=== PATIENT | male | born 1945 | race Caucasian/White ===

== ENCOUNTER 2020-12-19 13:25 | Outpatient (CLI) | payer MEDICARE, SELFPAY ==
--- NOTE | ~2020-12-19 | XR_ITS ---
EXAMINATION: XR chest 2V EXAM DATE: 12/19/2020 14:04 INDICATION: U07.1 - COVID-19. Shortness of breath. TECHNIQUE: Frontal and lateral projections of the chest obtained and reviewed. Comparison is made to prior examination from 01/22/2007. FINDINGS: Extensive abnormal reticulation throughout the lungs, new compared to 2006. Uncertain how m uch of this is chronic interstitial lung disease versus patient's known diagnosis of COVID pneumonia. There is a right-sided Chemo-Port which is abnormally positioned, catheter extending partly of the ri [facility] internal jugular vein, but then tipped extending back down to the subclavian confluence and point ing inferiorly. No sizable pleural effusion. No pneumothorax. There are bony degenerative changes. Incidental note made of a catheter overlying the nona hepatis with a proximal loop, could be biliary . IMPRESSION: 1. Extensive abnormal reticulation, consistent with subacute COVID pneumonia. 2. Possible underlying chronic interstitial lung disease. 3. Right-sided portacatheter with abnormal catheter position. Reviewed, dictated and finalized at location A.
[2020-12-19 14:49] LABS: Eosinophils Absolute Auto 0.1 K/mm3 (0-0.3); Eosinophils Percent Auto 3.2 % (0-4.4); Hematocrit 38.5 % (42.0-52.0); Hemoglobin 12.4 g/dL (14.0-18.0); Immature Granulocyte Absolute 0.02 K/mm3 (0.00-0.031); Immature Granulocyte Percent A 0.5 % (0-0.5); Lymphocytes Absolute Auto 0.61 K/mm3 (0.9-3.2); Lymphocytes Percent Auto 14.8 % (18.3-44.2); Mean Corpuscular HGB Conc 32.2 g/dl (32-36); Mean Corpuscular Hemoglobin 28.6 pg (26-34); Mean Corpuscular Volume 88.7 fl (80-100); Monocytes Absolute Auto 0.3 K/mm3 (0.1-0.6); Monocytes Percent Auto 6.6 % (2.6-8.5); Neutrophils Percent Auto 73.9 % (45.5-73.1); Platelet Count Result 115 k/mm3 (150-375); Red Blood Count 4.34 M/mm3 (4.6-6.20); Red Cell Distribution Width 20.8 % (11.5-14.5); White Blood Count 4.1 K/mm3 (4.5-10.0)
[2020-12-19 15:00] LABS: Anion Gap 2 mmol/L (8-16); Blood Urea Nitrogen 32 mg/dL (9-20); Calcium 9.2 mg/dL (8.4-10.2); Carbon Dioxide 31 mmol/L (22-30); Chloride 109 mmol/L (98-107); Estimated Glomerular Filt Rate 54; Glucose 124 mg/dL (75-110); Potassium 5.1 mmol/L (3.4-5.0); Sodium 142 mmol/L (137-145)
[2020-12-19 15:09] LABS: NT Pro B Type Natriuretic Pept 1600 pg/mL (5-100)
== END 2020-12-19 13:26 | disposition home or self-care (01) ==
LOC: ANHIMG 13:29
PROVIDERS: PCP Family Medicine; Visit Provider Nurse Practitioner Family
DX: R31.9 Hematuria, unspecified (principal); R06.00 Dyspnea, unspecified; R79.89 Other specified abnormal findings of blood chemistry; J12.82 Pneumonia due to coronavirus disease 2019; U07.1 COVID-19
CPT/HCPCS: 36415; 71046; 80048; 83880; 85025

== ENCOUNTER 2021-11-08 03:34 | Inpatient (IN) | payer MEDICARE, SELFPAY ==
[2021-11-08] VITALS (30 sets, daily range): BP systolic 66–110; BP diastolic 52–82; PULSE 99–125; RESP 16–37; TEMP 36.2–36.9; O2SAT 94–100; BMI 20.3
--- NOTE | 2021-11-08 | ECHO_ITS ---
Patient Info Name: Jarvis Nuno Age: 76 years : 1945 Gender: Male Ht: 66 in Wt: 134 lbs BSA: 1.68 m2 HR: 105 bpm BP: 103 / 69 mmHg Heart Rhythm: Sinus Rhythm, Tachycardia Technical Quality: Fair Exam Date: 11/08/2021 1:54 PM Exam Location: [facility] Pulmonary Exam Room: ICU7 Patient Status: Inpatient Admit Date: 11/08/2021 Staff Ordering Physician: Ryan Reich MD Acid Purifier: María Rojas RDCS Attending Provider: Ju Adams MD Exam Type: CA echo doppler color flow Study Info Indications - CHF Complete two-dimensional, color flow and Doppler transthoracic echocardiogram is performed. Summary 1. Complete two-dimensional, color flow and Doppler transthoracic echocardiogram is performed. 2. Normal left ventricular size with mild concentric hypertrophy, hyperdynamic systolic function with no segmental wall motion abnormalities, EF > 70%. Grade 1 diastolic dysfunction. 3. Moderate pulmonary hypertension, estimated pulmonary arterial systolic pressure is 51 mmHg. 4. There is trace tricuspid valve regurgitation. 5. sinus tachycardia. Left Ventricle Left ventricular chamber dimension is normal. Left ventricular systolic function is hyperdynamic, estimated at >70%. There is mildly increased left ventricular wall thickness. Left ventricular septal wall motion is normal. The left ventricular diastolic function is normal. Right Ventricle Right ventricular chamber dimension is normal. Right ventricular systolic function is normal. Left Atria Left atrial chamber dimension is normal. Right Atria Right atrial chamber dimension is normal. Aortic Valve The aortic valve is trileaflet. There is mild aortic valve sclerosis. There is no aortic valve stenosis. There is no aortic valve regurgitation. Pulmonic Valve The pulmonic valve is normal. There is no pulmonic valve stenosis. There is no pulmonic regurgitation. Mitral Valve The mitral valve has normal leaflets. There is no mitral valve stenosis. There is no mitral valve regurgitation. Tricuspid Valve The tricuspid valve leaflets are normal. There is no significant tricuspid valve stenosis. There is trace tricuspid valve regurgitation. Moderate pulmonary hypertension, estimated pulmonary arterial systolic pressure is 51 mmHg. Pericardium/Pleural The pericardium appears normal. There is no pericardial effusion. Inferior Vena Cava Normal inferior vena cava with >50% collapse upon inspiration consistent with Empty right atrial pressure, 10 mmHg. Aorta The aortic root size at the sinus of Valsalva is normal. The prox ascending aorta size is normal. Left Ventricular Outflow Tract Name Value Normal LVOT 2D LVOT Diameter 2.0 cm LVOT Doppler LVOT Peak Velocity 107 cm/s LVOT Peak Gradient 5 mmHg LVOT Mean Gradient 2 mmHg LVOT VTI 14 cm LVOT VTI/AV VTI Ratio 1.0 LVOT Stroke Volume 45 ml LVOT CO
--- NOTE | ~2021-11-08 | CT_ITS ---
EXAMINATION: CT abdomen pelvis wo con DATE: 11/08/2021 09:00 INDICATION: Acute renal insufficiency. Kidney stent. TECHNIQUE: Computed tomography (CT) of the abdomen and pelvis was performed without intravenous contr ast. Automated exposure control and iterative reconstruction technique were employed. The dose-length product was 567.44 mGy-cm. COMPARISON: CT dated 04/22/2019 and MRI dated 05/14/2019 FINDINGS: Severe emphysema at the lung bases with dependent predominant diffuse smooth septal line thickening s uggesting mild pulmonary edema. Heart size is normal. No pericardial or pleural effusion. Multiple hy podense masses scattered throughout the liver, the largest measuring up to 9 cm in the right hepatic lobe. There are a few gallstones within the normal-appearing gallbladder. Bilateral adrenal glands, p ancreas and spleen are normal. Right internal ureteral stent with loops formed in the bladder and the right extrarenal pelvis. Mild right hydronephrosis. Moderate to severe right renal atrophy. 1.5 cm h yperdense proteinaceous/hemorrhagic cyst at the lower pole of the left kidney. There is fluid through out the colon consistent with diarrhea. There are few diverticula at the sigmoid colon. There is sugg estion of wall thickening at the proximal sigmoid colon with some surrounding inflammatory stranding which does not appear specifically associated with a diverticulum. Mild wall thickening with smooth c ontour and small mural calcification at the right trigonal region of the bladder which could be relat ed to reported prior reported neoplasm of the bladder trigone or posttreatment effects. Prostatomegal y. No free intraperitoneal gas or fluid. No pathologically enlarged abdominal or pelvic lymphadenopat hy. Lumbar dextroscoliosis with severe spondylosis. No suspicious lytic or blastic bone lesions. IMPRESSION: 1. Numerous hepatic masses consistent with metastatic disease. Consider ultrasound-guided biopsy. 2. Wall thickening and pericolonic inflammatory stranding at the proximal sigmoid colon. Although the re are multiple diverticula disc does not appear definitively associated with a specific diverticulum and differential includes diverticulitis, focal colitis or colon cancer. Consider further evaluation with colonoscopy. 3. Mild wall thickening with smooth contour at the right trigonal region of the bladder likely relate d to reported prior neoplasm at this location or scarring related to treatment thereof. 4. Moderate to severe right renal atrophy with mild hydronephrosis and right internal ureteral stent in expected position. 5. Cholelithiasis. Reviewed, dictated and finalized at location A. IMPRESSION: 1. Numerous hepatic masses consistent with metastatic disease. Consider ultraso und-guided biopsy. 2. Wall thickening and pericolonic inflammatory stranding at the proximal sigmo id colon. Although there are multiple diverticula disc does not appear definiti vely associated with a specific diverticulum and differential includes divertic ulitis, focal colitis or colon cancer. Consider further evaluation with colonos copy. 3. Mild wall thickening with smooth contour at the right trigonal region of the bladder likely related to reported prior neoplasm at this location or scarring related to treatment thereof. 4. Moderate to severe right renal atrophy with mild hydronephrosis and right in ternal ureteral stent in expected position. 5. Cholelithiasis.
--- NOTE | ~2021-11-08 | NM_ITS ---
EXAMINATION: NM pulmonary perfusion DATE: 11/08/2021 09:06 INDICATION: Hypoxia. Tachycardia. TECHNIQUE: 5.5 mCi Tc-99m MAA was administered intravenously for perfusion images. Scintigraphic marisa ges of the chest were obtained. COMPARISON: Chest CT 11/08/2021, chest single view 11/08/2021 FINDINGS: Perfusion images show many matched defects including a large defect in superior segment right lower l obe, small and moderate sized defects in the lower lobes and right upper lobe, and a small defect in left upper lobe. IMPRESSION: 1. Nondiagnostic (intermediate probability for pulmonary embolism). Reviewed, dictated and finalized at location A.
--- NOTE | ~2021-11-08 | XR_ITS ---
EXAMINATION: XR chest 1V portable DATE: 11/08/2021 05:04 INDICATION: Shortness of breath TECHNIQUE: frontal view of the chest was obtained. COMPARISON: Chest radiograph dated 12/19/2020 FINDINGS: Diffuse increased interstitial pattern consistent with mild pulmonary edema superimposed over emphyse ma. No pleural effusion or pneumothorax. The cardiomediastinal silhouette is normal. Right internal j ugular central venous port catheter which is looped in the right internal jugular vein with distal ti p at the right brachiocephalic vein. Bilateral rotator cuff arthropathy with severe osteoarthritis at the bilateral glenohumeral and sternoclavicular joints. A few old bilateral rib fractures. IMPRESSION: 1. Pulmonary edema superimposed over emphysema. Reviewed, dictated and finalized at location A.
--- NOTE | ~2021-11-08 | XR_ITS ---
XR chest 1V portable 11/09/2021 08:17 Indication: Respiratory failure Procedure: AP portable chest Comparison: Comparison to multiple prior studies sequentially, with oldest reviewed study dated 01/22. Findings: Stable cardiomediastinal silhouette. Port catheter tip in the cranial aspect of the SVC. Di ffuse hazy bilateral airspace disease which may represent edema or pneumonia. No pleural effusion. No pneumothorax. Impression: 1: Diffuse bilateral airspace disease which may represent edema or pneumonia. Reviewed, dictated and finalized at location B. Impression: 1: Diffuse bilateral airspace disease which may represent edema or pneumonia.
--- NOTE | ~2021-11-08 | US_ITS ---
EXAMINATION: US venous doppler [facility] DATE: 11/08/2021 08:22 INDICATION: Hypoxia TECHNIQUE: Grayscale ultrasound images without and with compression and Doppler ultrasound images of the bilateral lower extremity veins were obtained. COMPARISON: None. FINDINGS: The visualized portions of right common femoral vein, profunda (deep) femoral vein, femoral vein, pop liteal vein, posterior tibial veins, peroneal veins, gastrocnemius vein and greater saphenous vein ou tflow are patent. The visualized portions of left common femoral vein, profunda femoral vein, femoral vein, popliteal v ein, posterior tibial veins, peroneal veins, gastrocnemius vein and greater saphenous vein outflow ar e patent. IMPRESSION: 1. No deep venous thrombosis in either lower limb. Reviewed, dictated and finalized at location A.
--- NOTE | ~2021-11-08 | CT_ITS ---
EXAMINATION: CT chest high resolution wo co DATE: 11/08/2021 06:16 INDICATION: LEUKOCYTOSIS, HYPOXIA, HX OF COPD, MALIGNANCY TECHNIQUE: Computed tomography (CT) of the chest was performed without intravenous contrast. Addition al 3D reconstructions utilizing coronal maximum intensity projection (MIP) were performed. Automated exposure control and iterative reconstruction technique were employed. The dose-length product was 17 4.34 mGy-cm. COMPARISON: 11/08/2021 FINDINGS: Severe emphysema. Smooth septal line thickening scattered throughout both lungs most prominent in the lower lung zones suggesting superimposed mild pulmonary edema. A couple spiculated 6 7 7 mm nodules at the left apex. Heart size is normal. Atherosclerotic coronary artery calcification. No pericardial or pleural effusion. Thoracic aorta is normal in caliber. No pathologically enlarged thoracic lympha denopathy. Right internal jugular central venous port catheter which loops 3 cm cephalad in the right internal jugular vein before extending caudally with distal tip at the level of the confluence with the right brachiocephalic vein. Partially visualized upper pole of the right kidney is severely atrop hic. Heterogeneous attenuation throughout the liver with suggestion of multiple hepatic masses suspic ious for metastatic disease. One of a larger more well-defined masses measures 2.2 cm. There is sugge stion of larger-9 cm mass in the right hepatic lobe however assessment is limited in the absence of i ntravenous contrast. Moderate upper thoracic kyphosis with internally fused chronic compression fract ures at T3-T5. Old healed sternal fracture and several old healed bilateral rib fractures. IMPRESSION: 1. Multiple hepatic masses suspicious for metastatic disease. 2. Severe emphysema with superimposed mild pulmonary edema. 3. Couple indeterminate 6 mm spiculated nodules at the left apex for which 12 month follow-up low-dos e noncontrast chest CT would be recommended. 4. Severe atrophy of the visualized upper pole of the right kidney. Reviewed, dictated and finalized at location A. IMPRESSION: 1. Multiple hepatic masses suspicious for metastatic disease. 2. Severe emphysema with superimposed mild pulmonary edema. 3. Couple indeterminate 6 mm spiculated nodules at the left apex for which 12 m onth follow-up low-dose noncontrast chest CT would be recommended. 4. Severe atrophy of the visualized upper pole of the right kidney.
--- NOTE | 2021-11-08 03:42 | ECG_ITS ---
Measurements Intervals [place] Rate: 112 P: 37 WV: 155 QRS: 268 QRSD: 129 T: 9 QT: 355 QTc: 485 Interpretive Statements SINUS TACHYCARDIA MARKED RIGHT AXIS DEVIATION [QRS AXIS > 100] RIGHT BUNDLE BRANCH BLOCK [120+ ms QRS DURATION, UPRIGHT V1, 40+ ms S IN I/aVL/V4/V5/V6] PREVIOUS INFEROLATERAL INFARCTION V3/V4, OR R < 0.2 mV IN V4] COMPARED TO ECG 04/23/2019 11:41:47 EVIDENCE OF INFEROLATERAL INFARCTION SEEN RIGHT BUNDLE-BRANCH BLOCK NOW PRESENT Electronically Signed On 11-08-2021 7:32:29 CDT by Addison Guevara M.D.
[2021-11-08] MEDS: SODIUM CHLORIDE 0.9% IV 500 ML 999 ML IV CONT ×2 (03:50→04:34)
[2021-11-08 03:55] LABS: Hematocrit 35.6 % (42.0-52.0); Hemoglobin 10.3 g/dL (14.0-18.0); Mean Corpuscular HGB Conc 28.9 g/dl (32-36); Mean Corpuscular Hemoglobin 25.4 pg (26-34); Mean Corpuscular Volume 87.7 fl (80-100); Mean Platelet Volume 8.9 fl (7.4-10.4); Platelet Count Result 315 k/mm3 (150-375); Red Blood Count 4.06 M/mm3 (4.6-6.20)
--- NOTE | 2021-11-08 03:56 | ED.SOB ---
HPI - SOB/Dyspnea General Chief Complaint: Shortness of Breath/Dyspnea Stated Complaint: SOB Time Seen by Provider: 11/08/21 03:39 Source: patient and family History of Present Illness HPI Narrative: Patient with a history of COPD, metastatic bladder cancer recently discontinued chemotherapy presents with shortness of breath. Patient has had increased shortness of breath and weakness throughout this evening was having a hard time moving so family called EMS and brought him to the ER for evaluation. Ports sensation of not being able to get enough air denies any focal areas of pain. Family attempting an oxygen level at home with her pulse oximeter however was not reading. Patient is normally on 4 to 5 L of oxygen nasal cannula at baseline. Denies any recent fevers, cough, congestion. Related Data Home Medications Medication Instructions Recorded Confirmed tramadol 100 mg tablet 100 mg PO Q6H PRN 12/13/20 12/24/20 Allergies Allergy/AdvReac Type Severity Reaction Status Date / Time No Known Allergies Allergy Verified 12/21/20 14:37 Review of Systems Review of Systems: CONSTITUTIONAL: Denies fever, chills, or sweats. EYES: Denies visual changes, redness, or discharge. ENT: Denies rhinorrhea, congestion, sore throat, or otalgia. CARDIOVASCULAR: Denies chest pain, palpitations, or edema. RESPIRATORY: Reports shortness of breath GASTROINTESTINAL: Denies abdominal pain, nausea, vomiting, or diarrhea. GENITOURINARY: Denies dysuria or hematuria. SKIN: Denies rash or itching. MUSCULOSKELETAL: Denies back pain, joint pain, or myalgia. NEUROLOGIC: Denies headache, numbness, dizziness, or weakness. PSYCHIATRIC: Denies anxiety or depression. 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 EYES: PERRLA and EOMI. ENT: Nares clear, no rhinorrhea or epistaxis. Mucous membranes moist. NECK: Supple. No masses. No JVD CHEST: Clear to auscultation. No wheezes rales or rhonchi moderate increased work of breathing HEART: Tachycardia no murmur heard. Normal peripheral pulses. ABDOMEN: Soft, nontender, nondistended, normal active bowel sounds. EXTREMITIES: Normal range of motion. No edema. SKIN: Warm, dry, no rash. NEURO: No focal deficits. Alert and oriented x3. PSYCH: Normal mood and affect. Course Reevaluation(s) Reevaluation #1: Patient is critically ill remains tachycardic and hypotensive. Continue to titrate his nonrebreather. Patient is a history of metastatic cancer PEs exam is with clear lungs primary concern at this time is for a massive PE due to patient's elevated creatinine and GFR he is unable to obtain contrast VQ scan is unlikely to be beneficial due to patient's known interstitial lung disease will confirm with nuc med. Family is comfortable pursuing contrasted study knowing the risks. We will continue coordination with radiology Date: 11/08/21 Time: 05:01 Reevaluation #2: Long discussion held with family with regards to goals of care symptom's hypoxia leukocytos
[2021-11-08 04:06] LABS: INR 1.1; Prothrombin Time 13.8 Seconds (11.1-14.7)
[2021-11-08 04:07] LABS: Alveolar/Arterial O2 Gradient 414.3 mmHg; Base Excess ABG -9.9 mEq/l (+/-2.0); Fractional Inspired Oxygen 100 %; HCO3 ABG 15.4 mEq/l (22.0-26.0); Oxygen Content ABG 14.2 %vol (16.0-22.0); Oxygen Saturation ABG 99.6 % (95.0-100.0); Oxyhemoglobin 98.4 % THb (90.0-100.0); PCO2 ABG 31.7 mmHg (35.0-45.0); PO2 FiO2 Ratio Arterial Blood 2.67 %; Total Hemoglobin 9.8 g/dL (12.0-18.0); pH ABG 7.304 (7.350-7.450)
[2021-11-08 04:09] LABS: Device NON-REBREATHER MASK; Modified Allen's Test Pass; Site Drawn RIGHT RADIAL
[2021-11-08 04:10] LABS: White Blood Count 52.1 K/mm3 (4.5-10.0)
[2021-11-08 04:12] LABS: Band Neutrophils Percent 15 % (0-6); Monocytes Absolute Manual 3.12 K/mm3 (0.1-0.90); Monocytes Percent Manual 6 % (3-9); Neutrophils Absolute Manual 48.97 K/mm3 (1.3-6.7); Neutrophils Percent Manual 79 % (46-73); Platelet Estimate Decreased (Adequate); Total Cells Counted 100
[2021-11-08 04:13] LABS: Anisocytosis 1+ (NORMAL); Large Platelets Present; Ovalocytes 1+ (NORMAL); Poikilocytosis 1+ (NORMAL); Stomatocytes 1+ (NORMAL)
[2021-11-08 04:26] LABS: Alanine Aminotransferase 78 U/L (4-50); Albumin Level 3.9 g/dL (3.5-5.1); Alkaline Phosphatase 473 U/L (38-126); Anion Gap 21 mmol/L (8-16); Aspartate Amino Transferase 183 U/L (17-59); Blood Urea Nitrogen 53 mg/dL (9-20); Calcium 8.9 mg/dL (8.4-10.2); Carbon Dioxide 17 mmol/L (22-30); Chloride 104 mmol/L (98-107); Estimated CRCL calculation 22 ml/min; Estimated Glomerular Filt Rate 29; Glucose 109 mg/dL (65-110); Magnesium 2.3 mg/dL (1.6-2.3); NT Pro B Type Natriuretic Pept 4070 pg/mL (5-100); Potassium 5.1 mmol/L (3.4-5.0); Sodium 142 mmol/L (137-145); Troponin I 0.042 ng/mL (0.000-0.034)
[2021-11-08 04:39] LABS: Lactic Acid Reflex 8.3 mmol/L (0.7-2.1)
[2021-11-08] MEDS: SODIUM CHLORIDE 0.9% IV 1,000 ML 999 ML IV CONT (05:53)
[2021-11-08 06:39] LABS: Hematocrit 30.5 % (42.0-52.0); Hemoglobin 9.2 g/dL (14.0-18.0); Mean Corpuscular HGB Conc 30.2 g/dl (32-36); Mean Corpuscular Hemoglobin 25.6 pg (26-34); Mean Platelet Volume 9.2 fl (7.4-10.4); Platelet Count Result 285 k/mm3 (150-375); Red Blood Count 3.59 M/mm3 (4.6-6.20); Red Cell Distribution Width 19.9 % (11.5-14.5); White Blood Count 45.9 K/mm3 (4.5-10.0)
[2021-11-08 06:44] LABS: Add Urine Microscopic? YES; Appearance Urine Cloudy (Clear); Bilirubin Urine Negative (Negative); Blood Urine 3+ (Negative); Color Urine Amber (Yellow); Glucose Urine UA 1+ mg/dL (Negative); Ketones Urine Negative (Negative); Leukocyte Esterase Ur 1+ LEU/UL (Negative); Nitrate Urine Negative (Negative); Protein Urine 2+ mg/dL (Negative); RBC Urine >75 /hpf (0-2); Specific Grav Ur 1.019 (1.001-1.035); Squamous Epithelial Cell Urine Rare /hpf (Few); Urobilinogen Urine Negative mg/dL (<2.0); WBC Urine 31-50 /hpf
[2021-11-08 06:49] LABS: INR 1.1; Prothrombin Time 14.1 Seconds (11.1-14.7)
[2021-11-08 06:50] LABS: Partial Thromboplastin Time 33.2 SECONDS (22.3-36.8)
[2021-11-08] MEDS: PIPERACILLIN/TAZOBACTAM SOD 4.5 GM in SODIUM CHLORIDE 0.9% IV 100 ML 200 ML IVPB (06:50)
[2021-11-08] MEDS: HEPARIN SOD/D5W 100 UNITS/ML 25,000 UNITS/250 ML BAG 11 UNITS IV CONT (06:56)
[2021-11-08] MEDS: HEPARIN SODIUM 5,000 UNITS/ML VIAL 5000 UNITS IV PUSH (06:56)
[2021-11-08 07:26] LABS: Reflex Lactic Acid Yes or No Add Lactic
--- NOTE | 2021-11-08 07:31 | WPDCNINT ---
Assessment and Plan Assessment and plan (1) Acute and chronic respiratory failure: Code(s): J96.20 - Acute and chronic respiratory failure, unspecified whether with hypoxia or hypercapnia Status: Acute Assessment and Plan: Patient has severe COPD at baseline and along with a metastatic lung disease. He also has history of PEEP Is on 4-5 L at home oxygen Hypoxia appears to be worse CT which could be COPD exacerbation, a new PE and also has a pulmonary edema CT chest IMPRESSION: 1. Multiple hepatic masses suspicious for metastatic disease. 2. Severe emphysema with superimposed mild pulmonary edema. 3. Couple indeterminate 6 mm spiculated nodules at the left apex for which 12 month follow-up low-dose noncontrast chest CT would be recommended. 4. Severe atrophy of the visualized upper pole of the right kidney. COVID-19 PCR negative. Check influenza Heparin infusion for possible PE Will further IV fluids due to pulmonary edema IV Solu-Medrol Bronchodilators Empiric antibiotic (2) Sepsis: Code(s): A41.9 - Sepsis, unspecified organism Status: Acute Assessment and Plan: Patient meets criteria for sepsis. UA suggests UTI CT chest reviewed and does not chew any significant pneumonia Patient has received significant amount of fluids with IV fluid bolus and has developed volume overload Hold further IV fluids Monitor lactic acid level Blood and urine cultures sent Continue empiric vancomycin Zosyn Check C diff (3) Lactic acidosis: Code(s): E87.2 - Acidosis Status: Acute Assessment and Plan: Likely secondary to sepsis hypoxia and poor clearance from metastatic liver disease (4) VTE (venous thromboembolism): Code(s): I82.90 - Acute embolism and thrombosis of unspecified vein Status: Acute Assessment and Plan: Patient was diagnosed with PE and DVT in November 2020 and was on anticoagulation for few months. Per it was discontinued by physician and he did not had any complications of bleeding He may have developed a new PE as he has malignant cancer and is at high risk Continue heparin infusion that was started in ER Check lower extremity Dopplers The patient's poor renal function does not allow CT angiogram V/Q scan is ordered Check echocardiogram (5) COPD (chronic obstructive pulmonary disease): Qualifiers: COPD type: COPD with acute exacerbation Qualified Code(s): J44.1 - Chronic obstructive pulmonary disease with (acute) exacerbation Code(s): J44.9 - Chronic obstructive pulmonary disease, unspecified Status: Acute Assessment and Plan: Does not appear to be in any significant exacerbation from baseline. His oxygen requirement is at baseline No wheezing on exam but he has poor air entry throughout. Lip pursing Start Bronchodilators and Solu-Medrol (6) Congestive heart failure: Code(s): I50.9 - Heart failure, unspecified Status: Acute Assessment and Plan: Patient has cor pulmonale with right to left shunt Appears to have some volume moved after receiving IV fluid Hold further IV fluids at this time Will consider giving Lasix if blood pressure allows Check echocardiogram (7) Acute kidney injury superimposed on chronic kidney disease: Code(s): N17.9 - Acute kidney failure, unspecified; N18.9 - Chronic kidney disease, unspecified Status: Acute Assessment and Plan: Patient was given IV fluid bolus and patient appears to have developed some volume overload hence will hold further fluids at this time Check CK level Monitor urine output creatinine electrolytes Since patient already has a stent on the right side there is a possibility of obstruction and hydronephrosis-check CT scan of abdomen pelvis (8) Hyperkalemia: Code(s): E87.5 - Hyperkalemia Status: Acute Assessment and Plan: Repeat BMP now (9) Metabolic acidosis: Code(s): E87.2 - Acidosis Status: Acute
[2021-11-08 07:42] LABS: SARS-CoV-2 RNA PCR Negative
[2021-11-08 07:49] LABS: Anisocytosis 2+ (NORMAL); Band Neutrophils Percent 11 % (0-6); Neutrophils Percent Manual 89 % (46-73); Platelet Estimate Adequate (Adequate); Total Cells Counted 100
[2021-11-08 08:41] LABS: Lactic Acid 1.4 mmol/L (0.7-2.1)
[2021-11-08 08:43] LABS: Anion Gap 9 mmol/L (8-16); Blood Urea Nitrogen 55 mg/dL (9-20); Calcium 7.8 mg/dL (8.4-10.2); Carbon Dioxide 24 mmol/L (22-30); Chloride 105 mmol/L (98-107); Estimated CRCL calculation 22 ml/min; Estimated Glomerular Filt Rate 31; Glucose 179 mg/dL (65-110); Potassium 4.3 mmol/L (3.4-5.0); Sodium 138 mmol/L (137-145)
[2021-11-08 08:58] LABS: Creatine Kinase 95 U/L (55-170)
[2021-11-08 09:53] LABS: Influenza Control Positive
[2021-11-08] MEDS: PANTOPRAZOLE SODIUM IV 40 MG VIAL IV PUSH (10:01)
[2021-11-08] MEDS: methylPREDNISolone SOD SUCC 125 MG VIAL 60 MG IV PUSH (10:01)
[2021-11-08 10:06] LABS: Toxigenic C. Diff NEGATIVE (NEGATIVE)
[2021-11-08] MEDS: VANCOMYCIN ORAL 125 MG/2.5 ML SYRUP PO (10:08)
[2021-11-08 13:00] LABS: Lactic Acid Reflex 1.1 mmol/L (0.7-2.1)
[2021-11-08 13:04] LABS: Partial Thromboplastin Time 124.7 SECONDS (22.3-36.8)
[2021-11-08] MEDS: CENTRAL LINE FLUSH 10 ML IV PUSH ×2 (14:22→20:21)
--- NOTE | 2021-11-08 14:33 | ADMGEN ---
This patient, Jarvis Nuno, was admitted to Intensive Care Unit-7 at 0740. Patient/family oriented to hospital policies and general routines including ID bracelet, bed and alarms, visiting hours, pain management, procedures, bathroom and other care routines, personal items, smoking policy, room service/diet, and visiting hours. Information on how to activate the Rapid Response Team has been discussed. Patient/Family are encouraged to report perceived risks to care and to ask questions if they do not understand what they are told or what they should do.
--- NOTE | 2021-11-08 17:09 | PM.IMHP ---
H&P: HPI History of Present Illness Date/Time: 11/08/21 17:09 Chief Complaint: SOB and Tachycardiac Narrative: Pt seen in ICU by the bedside reports he fell over and she checked his pulse oxs which were not readable called 911. Pt has a significant medical history severe COPD, right to left shunt, chronic respiratory failure, alcohol and tobacco abuse, hypertension, urothelial cancer of bladder diagnosed in 2019, right kidney stone leading to hydronephrosis status post stent placement in 2019, emphysema. Workup showed that his urothelial carcinoma was metastatic with metastatic disease in liver. Pt was in hospital last october with COVID. Pt currently is with palliative radiation and immunotheraphy. Pt is considering hospice. Pt looks frail Bp is low and he is Sob stable on oxygen. Review of Systems Review of Systems: All systems reviewed & are unremarkable except as noted in HPI and below PMFSH Past Medical History Medical History Tobacco abuse Surgical History Surgical History Status post placement of arteriovenous graft Family History Family History Father Family history of chronic obstructive pulmonary disease Mother Family history of atrial fibrillation Social History Social History Smoking packs per day: 1 Smoking cigarettes per day: 20.0 Years smoked: 65 Smoking pack-years: 65.00 Smoking status: Former smoker Tobacco type: cigarettes Alcohol intake: never Substance use: never Substance use type: does not use Additional occupation/education comments: [employer] Gender identity (if verbalized by the patient): Male Spiritual care concerns: No Meds Home Medications and Allergies Home Medications Medication Instructions Recorded Confirmed Type tramadol 100 mg tablet 50 mg PO Q6H PRN 12/13/20 11/08/21 History albuterol sulfate 2.5 mg INHALATION QID PRN 11/08/21 11/08/21 History azithromycin See Rx Instructions .ROUTE .COMPLEX 11/08/21 11/08/21 History mirtazapine 15 mg PO HS 11/08/21 11/08/21 History prednisone 5 mg PO DAILY 11/08/21 11/08/21 History Allergies Allergy/AdvReac Type Severity Reaction Status Date / Time No Known Allergies Allergy Verified 12/21/20 14:37 Vital Signs Vital Signs - 24 hr 11/08/21 03:34 11/08/21 03:57 11/08/21 04:03 Temperature 36.2 C L Pulse Rate 116 H 108 H 108 H Respiratory Rate 22 H 20 Blood Pressure 66/55 L 79/52 L Pulse Oximetry 100 100 100 11/08/21 04:27 11/08/21 04:46 11/08/21 04:47 Temperature Pulse Rate 105 H 103 H Respiratory Rate 20 20 Blood Pressure 100/65 92/64 L Pulse Oximetry 100 100 100 11/08/21 05:00 11/08/21 05:15 11/08/21 05:30 Temperature Pulse Rate 102 H 105 H 106 H Respiratory Rate 19 18 19 Blood Pressure 92/70 L 88/64 L 109/69 Pulse Oximetry 100 100 100 11/08/21 05:45 11/08/21 06:01 11/08/21 06:30 Temperature Pulse Rate 107 H 100 Respiratory Rate 25 H 28 H Blood Pressure 99/65 L 104/64 Pulse Oximetry 100 100 100 11/08/21 06:52 11/08/21 07:00 11/08/21 07:01 Temperature Pulse Rate 100 101 H 101 H Respiratory Rate 16 25 H 23 H Blood Pressure 110/76 103/69 Pulse Oximetry 100 100 11/08/21 07:03 11/08/21 08:00 11/08/21 10:00 Temperature Pulse Rate 102 H 100 Respiratory Rate 31 H Blood Pressure 107/77 Pulse Oximetry 100 100 11/08/21 12:00 11/08/21 14:00 Temperature 36.2 C L 36.7 C Pulse Rate 99 107 H Respiratory Rate 23 H 37 H Blood Pressure 102/70 105/75 Pulse Oximetry 97 98 Exam Narrative: FRAIL CHRONICALLY ILL CATHEXIC WEAK TIRED HENMT: Head: normocephalic Eyes: General: appearance normal, both eyes and all related structures Pupils: Equal, round and reactive pupils present Resp: Effor
[2021-11-08] MEDS: SODIUM CHLORIDE 0.9% IV 500 ML IV CONT (19:15)
[2021-11-08 19:18] LABS: Hematocrit 28.4 % (42.0-52.0); Hemoglobin 8.7 g/dL (14.0-18.0); Mean Corpuscular HGB Conc 30.6 g/dl (32-36); Mean Corpuscular Hemoglobin 25.8 pg (26-34); Mean Corpuscular Volume 84.3 fl (80-100); Mean Platelet Volume 9.3 fl (7.4-10.4); Platelet Count Result 241 k/mm3 (150-375); Red Blood Count 3.37 M/mm3 (4.6-6.20); Red Cell Distribution Width 20.1 % (11.5-14.5); White Blood Count 43.9 K/mm3 (4.5-10.0)
[2021-11-08 19:31] LABS: Partial Thromboplastin Time 67.1 SECONDS (22.3-36.8)
[2021-11-08] MEDS: HEPARIN SODIUM 5,000 UNITS/ML VIAL 2500 UNITS IV PUSH (20:20)
[2021-11-08] MEDS: ALBUMIN HUMAN 5% 25 GM/500 ML BTL IV CONT (21:04)
[2021-11-09] VITALS (29 sets, daily range): BP systolic 71–143; BP diastolic 50–93; PULSE 97–134; RESP 17–34; TEMP 36.3–38.1; O2SAT 86–100
[2021-11-09] MEDS: LEVALBUTEROL NEB 1.25 MG/3 ML INHALATION (02:41)
[2021-11-09] MEDS: IPRATROPIUM BR 0.02% INH SOLN 0.5 MG/2.5 ML VIAL INHALATION (02:41)
[2021-11-09] MEDS: NOREPINEPHRINE 8 MG/D5W 250 ML 8 MG/250 ML BAG 9.38 MG IV CONT (03:00)
[2021-11-09 03:09] LABS: Hematocrit 23.8 % (42.0-52.0); Hemoglobin 7.4 g/dL (14.0-18.0); Mean Corpuscular HGB Conc 31.1 g/dl (32-36); Mean Corpuscular Hemoglobin 25.4 pg (26-34); Mean Corpuscular Volume 81.8 fl (80-100); Mean Platelet Volume 8.9 fl (7.4-10.4); Platelet Count Result 200 k/mm3 (150-375); Red Blood Count 2.91 M/mm3 (4.6-6.20); Red Cell Distribution Width 19.9 % (11.5-14.5); White Blood Count 36.2 K/mm3 (4.5-10.0)
[2021-11-09 03:24] LABS: Alanine Aminotransferase 189 U/L (4-50); Albumin Level 2.9 g/dL (3.5-5.1); Alkaline Phosphatase 367 U/L (38-126); Anion Gap 10 mmol/L (8-16); Aspartate Amino Transferase 323 U/L (17-59); Bilirubin,Total 1.2 mg/dL (0.2-1.3); Blood Urea Nitrogen 52 mg/dL (9-20); Calcium 7.6 mg/dL (8.4-10.2); Carbon Dioxide 20 mmol/L (22-30); Chloride 112 mmol/L (98-107); Creatine Kinase 89 U/L (55-170); Estimated CRCL calculation 21 ml/min; Estimated Glomerular Filt Rate 29; Glucose 135 mg/dL (65-110); Magnesium 1.7 mg/dL (1.6-2.3); Partial Thromboplastin Time 67.9 SECONDS (22.3-36.8); Potassium 3.6 mmol/L (3.4-5.0); Sodium 142 mmol/L (137-145)
[2021-11-09] MEDS: HEPARIN SODIUM 5,000 UNITS/ML VIAL 2500 UNITS IV PUSH (03:48)
[2021-11-09] MEDS: HEPARIN SOD/D5W 100 UNITS/ML 25,000 UNITS/250 ML BAG 12 UNITS IV CONT (03:49)
[2021-11-09 04:38] LABS: Band Neutrophils Percent 14 % (0-6); Lymphocytes Absolute Manual 1.08 K/mm3 (1.1-4.5); Monocytes Absolute Manual 1.81 K/mm3 (0.1-0.90); Monocytes Percent Manual 5 % (3-9); Neutrophils Percent Manual 78 % (46-73); Total Cells Counted 100
[2021-11-09 04:39] LABS: Platelet Estimate Adequate (Adequate)
[2021-11-09 04:40] LABS: Poikilocytosis 1+ (NORMAL)
[2021-11-09] MEDS: CENTRAL LINE FLUSH 10 ML IV PUSH ×2 (05:09→14:04)
[2021-11-09] MEDS: LACTATED RINGERS 1,000 ML 999 ML IV CONT (08:24)
[2021-11-09] MEDS: CALCIUM GLUC 2,000 MG/NS 100ML 2,000 MG/100 ML BAG 100 MG IVPB (08:26)
[2021-11-09] MEDS: PANTOPRAZOLE SODIUM IV 40 MG VIAL IV PUSH (08:26)
[2021-11-09] MEDS: MIDODRINE HCL 10 MG TABLET PO ×2 (08:26→12:42)
[2021-11-09] MEDS: HYDROCORTISONE SODIUM SUCCINATE 100 MG/2 ML VIAL IV PUSH ×2 (08:26→14:04)
[2021-11-09] MEDS: MAGNESIUM OXIDE 200 MG TABLET PO (08:26)
[2021-11-09] MEDS: ENOXAPARIN 60 MG/0.6 ML SYRINGE SUB-Q (08:26)
--- NOTE | 2021-11-09 09:32 | WPDINTPN ---
Progress Note: A&P Assessment and Plan (1) Acute and chronic respiratory failure: Code(s): J96.20 - Acute and chronic respiratory failure, unspecified whether with hypoxia or hypercapnia Status: Acute Assessment and Plan: Patient has severe COPD at baseline and along with a metastatic lung disease. He also has history of PEEP Is on 4-5 L at home oxygen Hypoxia appears to be worse CT which could be COPD exacerbation, a new PE and also has a pulmonary edema CT chest IMPRESSION: 1. Multiple hepatic masses suspicious for metastatic disease. 2. Severe emphysema with superimposed mild pulmonary edema. 3. Couple indeterminate 6 mm spiculated nodules at the left apex for which 12 month follow-up low-dose noncontrast chest CT would be recommended. 4. Severe atrophy of the visualized upper pole of the right kidney. COVID-19 PCR negative. Influenza was negative On presentation PE was suspected and patient was started on empiric anticoagulation with heparin infusion. His perfusion scan was intermediate, lower extremity Dopplers were negative and echo was unremarkable in suggesting PE. Since patient has a history of DVT PE last year and continues to be at high risk of pulmonary embolism due to malignant cancer, has low respiratory reserve due to underlying COPD and no way to completely exclude PE, continuing anticoagulation would be the most reasonable route as long as patient can tolerate anticoagulation. No bleeding evident at this time. I will switch his heparin infusion to Lovenox subQ. Will discuss with his regarding continue anticoagulation with risks and benefits and see what she would like to considering she is exploring options of hospice. Continue IV steroids, Bronchodilators Empiric antibiotic (2) Sepsis: Code(s): A41.9 - Sepsis, unspecified organism Status: Acute Assessment and Plan: Patient meets criteria for sepsis. UA suggests UTI Blood and urine cultures are pending CT chest reviewed and does not chew any significant pneumonia Patient's blood pressure overnight dropped and he was started on Levophed which will be continued Although his chest x-ray suggests pulmonary edema patient is on home oxygen and echo did not show any IVC dilation see above volume overload Hence I will give him additional IV fluids today 1 L bolus and another L over 10 hours ordered Albumin 25% stress dose hydrocortisone ordered Will try to wean off Levophed if possible Lactic acid level has normalized Continue empiric vancomycin Zosyn His C diff was negative (3) Lactic acidosis: Code(s): E87.2 - Acidosis Status: Acute Assessment and Plan: Likely secondary to sepsis hypoxia and poor clearance from metastatic liver disease Lactate level has normalized (4) VTE (venous thromboembolism): Code(s): I82.90 - Acute embolism and thrombosis of unspecified vein Status: Acute Assessment and Plan: Patient was diagnosed with PE and DVT in November 2020 and was on anticoagulation for few months. Per it was discontinued by physician and he did not had any complications of bleeding On presentation PE was suspected and patient was started on empiric anticoagulation with heparin infusion. His perfusion scan was intermediate, lower extremity Dopplers were negative and echo was unremarkable in suggesting PE. Since patient has a history of DVT PE last year and continues to be at high risk of pulmonary embolism due to malignant cancer, has low respiratory reserve due to underlying COPD and no way to completely exclude PE, continuing anticoagulation would be the most reasonable route as long as patient can tolerate anticoagulation. No bleeding evident at this time. I will switch his heparin infusion to Lovenox subQ. Will discuss with his regarding continue anticoagulation with risks and benefits and see what she would like to considering she is exploring options of hospice. The patient's poor renal functi
[2021-11-09] MEDS: LACTATED RINGERS 1,000 ML 100 ML IV CONT (09:38)
[2021-11-09] MEDS: ALBUMIN HUMAN 25% 25 GM/100 ML 100 ML IVPB (12:43)
--- NOTE | 2021-11-09 15:07 | PCFNICU ---
ICU Rounding Note: Pt current nutrition is Regular diet and dietary supplements Last recorded weight is 58 kg, up 0.8kg from last reported wt on 11/08/21. Recommend re-weight prior to discharge. Bowel Motility: +BM reported 11/09/21 Labs Reviewed: Hgb 7.4, Hct 23.8, Alb 2.9, Cl 112, CO2 20, GFR 29, BUN 52, Cr 2.10, Glu 135, APTT 67.9, Ca 7.6, ALP 367, AST 326, ALT 189 Meds Noted: Albutein, Lovenox, Solu-Cortef, Atrovent Neb, Lactated Ringers, Mag-Ox, Midodrine, Levophed, Protonix, Zosyn, Vancomycin Skin: No new skin breakdown. WNL Additional Notes: Current nutrition is a regular diet and dietary supplements of Ensure Enlive TID providing an additional 350kcal and 20g of protein and Frozen Nutritional Treat BID providing an additional 300kcal and 9g of protein to increase caloric intake. Reported intake is 0% and 10% x3. Pt continue to have poor PO intake. Reports of pt drinking dietary supplement of Ensure Enlive TID. Agree with diet orders at this time. Will continue to follow. Following daily in ICU rounds. Will reassess every T/F.
--- NOTE | 2021-11-09 16:08 | PM.IMPN ---
Progress Note: A&P Assessment and Plan (1) Diarrhea: Code(s): R19.7 - Diarrhea, unspecified Status: Acute (2) Urothelial cancer: Code(s): C68.9 - Malignant neoplasm of urinary organ, unspecified Status: Acute (3) Metabolic acidosis: Code(s): E87.2 - Acidosis Status: Acute (4) Hyperkalemia: Code(s): E87.5 - Hyperkalemia Status: Resolved (5) Acute kidney injury superimposed on chronic kidney disease: Code(s): N17.9 - Acute kidney failure, unspecified; N18.9 - Chronic kidney disease, unspecified Status: Acute Additional Plan # end of life care -after extensive conversation with family, we are changing patient to comfort care measures only and do not resuscitate code status -pain control p.r.n. morphine -anxiety p.r.n. Ativan -normal lab draws, further tests, antibiotic -consulting hospice # metastatic urothelial bladder cancer # hematuria and hematochezia # SEPSIS -diagnosed in 2019 now with liver metastasis -patient's family has opted no more chemotherapy and palliative radiation # DVT/PE -provoked secondary to cancer, patient was heparin drip and switch Lovenox this morning, will stop now with hematuria # severe emphysema COPD Diet: Regular DVT prophylaxis: Not indicated with comfort care measures only Code status: Do not resuscitate Disposition: Comfort care measures, family looking into hospice Time Spent With Patient Time: 90 min including hospice conversation with family, evaluating patient, code status conversation Time with patient: Greater than 35 minutes Subjective Date/time seen: 11/09/21 16:08 Patient seen and examined. I (along with nursing care coordinators) had extensive conversation with patient's family including , son, daughter about hospice. After an hour long conversation patient's , the decision maker, agreed to do not resuscitate and comfort care measures only. We will stop lab draws, IV antibiotics, any further workup. We are consulting hospice agencies to see if patient will qualify for inpatient hospice. Patient had complaints of hematuria, dyspnea, malaise, generalized weakness. Denies fever, chills, nausea, vomiting. Review of Systems Review of Systems: All systems reviewed & are unremarkable except as noted in HPI and below Exam Narrative: - GENERAL: Frail male in respiratory distress. - EYES: EOMI. Anicteric. - HENT: Moist mucous membranes. - LUNGS: Crackles bilaterally, diminished lung bases. - CARDIOVASCULAR: Regular rate and rhythm. No murmur. No JVD. - ABDOMEN: Soft, non-tender and non-distended. No palpable masses. - : Vences catheter with hematuria. - EXTREMITIES: No edema. Peripheral pulses 2+. Non-tender. - NEUROLOGIC: No focal neurological deficits. CN II-XII grossly intact. - PSYCHIATRIC: Awake, Alert and oriented. Appropriate mood and affect. - SKIN: No rashes or lesions. Warm. - LYMPH: No cervical lymphadenopathy. Objective Data Vital Signs Vital Signs: Vital Signs - 24 hr 11/08/21 18:00 11/08/21 19:00 11/08/21 19:30 Temperature Pulse Rate 125 H 124 H 117 H Respiratory Rate 25 H Blood Pressure 93/82 L 78/53 L 82/59 L Pulse Oximetry 97 11/08/21 19:45 11/08/21 20:00 11/08/21 20:30 Temperature 36.9 C Pulse Rate 116 H 120 H 123 H Respiratory Rate 17 28 H Blood Pressure 96/63 L 83/56 L 97/75 L Pulse Oximetry 100 97 11/08/21 21:00 11/08/21 21:07 11/08/21 22:00 Temperature Pulse Rate 121 H 122 H 119 H Respiratory Rate 25 H 28 H 23 H Blood Pressure 85/55 L 104/61 Pulse Oximetry 99 97 98 11/09/21 00:00 11/09/21 02:00 11/09/21 02:28 Temperature 36.8 C 38.1 C H Pulse Rate 122 H 134 H Respiratory Rate 22 H 31 H Blood Pressure 103/63 110/64 Pulse Oximetry 96 86 L 11/09/21 02:42 11/09/21 02:56 11/09/21 03:00 Temperature Pulse Rate 133 H 132 H 131 H Respiratory Rate 28 H 28 H Blood Pressure 71/50 L Pulse Oximetry 88 L 100 11/09/21 03
[2021-11-09] MEDS: MORPHINE SULFATE (*CRX) 2 MG/ML INJ IV PUSH (17:08)
--- NOTE | 2021-11-09 21:03 | PC.NURSE ---
20:37 Patient's discussing types of power of sports attorney with hospice nurse. She is concerned about their business. Hospice nurse discussed need for paperwork, and notary to verify signature. It was reinforced that notary must be present when patient signs. This RN, and conference organizer also stressed that there could be an issue with patient taking current PRN medications, and legality of signing document. Also, told patient's should consult with their business applications developer as we can not provide legal advice. agrees at this time, and hospice nurse has modified hospice plan for patient to be consistent with needs of family/patient.
--- NOTE | 2021-11-21 13:43 | PM.DS ---
DS: Admitting Diagnosis Discharge Date 11/09/21 and date of service 11/09/21 Admitting Diagnosis acute hypoxic respiratory failure DS: Discharge Diagnosis Discharge Diagnosis (1) Palliative care by specialist: Code(s): Z51.5 - Encounter for palliative care Status: Acute (2) COPD (chronic obstructive pulmonary disease): Qualifiers: COPD type: COPD with acute exacerbation Qualified Code(s): J44.1 - Chronic obstructive pulmonary disease with (acute) exacerbation Code(s): J44.9 - Chronic obstructive pulmonary disease, unspecified Status: Acute (3) Pulmonary embolism, bilateral: Code(s): I26.99 - Other pulmonary embolism without acute cor pulmonale Status: Resolved (4) Bladder cancer: Code(s): C67.9 - Malignant neoplasm of bladder, unspecified Status: Acute (5) Hypoxia: Code(s): R09.02 - Hypoxemia Status: Acute (6) VTE (venous thromboembolism): Code(s): I82.90 - Acute embolism and thrombosis of unspecified vein Status: Acute DS: Summary Hospital Course Hospital Course: Hospital Course Reason for hospitalization: Acute hypoxic respiratory failure Hospital Course: Patient is a 76-year-old male past medical history of severe emphysema COPD, chronic respiratory failure, alcohol tobacco abuse, urothelial cancer bladder since 2018 presents to the ED with complaints of dyspnea. 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 November 2019 was on salvage chemotherapy. He was on enfortumab vedotin. Subsequently developed COVID pneumonia and pulmonary embolism. On 10/31/2021 with discussion with family and Oncology he was deemed not to be a candidate for further therapies for his cancer. Patient was sent home with 4-5 L of oxygen by nasal cannula. Patient was admitted to the ICU for sepsis, acute hypoxic respiratory failure. Was put on heparin drip for presumed pulmonary embolism (he has a history of PE in November 2020) and he is at risk with his cancer diagnosis. He met sepsis criteria for UTI. Was placed on empiric antibiotics [facility]. He started developing hematuria and rectal tube was placed for diarrhea. I (along with nursing care coordinators) had extensive conversation with patient's family including , son, daughter about hospice. After an hour long conversation patient's , the decision maker, agreed to do not resuscitate and comfort care measures only. We will stop lab draws, IV antibiotics, any further workup. We consulted hospice agencies to see if patient will qualify for inpatient hospice. Family agreed to [facility]. Hospice agencies recommending inpatient hospice, patient to be discharged to hospice team. Family understand agree with plan. Date of service 11/09/21 Status at Discharge Functional status at discharge: bed bound Overall status at discharge: patient is not back to baseline Time Spent with Patient Time attestation: Total time spent providing and/or coordinating discharge services:90 Time spent: Greater than 30 minutes Exam Narrative: - GENERAL: Frail male in respiratory distress. - EYES: EOMI. Anicteric. - HENT: Moist mucous membranes. - LUNGS: Crackles bilaterally, diminished lung bases. - CARDIOVASCULAR: Regular rate and rhythm. No murmur. No JVD. - ABDOMEN: Soft, non-tender and non-distended. No palpable masses. - : Vences catheter with hematuria. - EXTREMITIES: No edema. Peripheral pulses 2+. Non-tender. - NEUROLOGIC: No focal neurological deficits. CN II-XII grossly intact. - PSYCHIATRIC: Awake, Alert and oriented. Appropriate mood and affect. - SKIN: No rashes or lesions. Warm. - LYMPH: No cervical lymphadenopathy. DS: Data Additional Comments Additional comments: DS: Data Data Completed and Pending Completed studies during hospitalization: Laboratory Results - last 24 hr 11/08/21 11/08/21 11/09/21 19:06 19:11 03:03 WBC 43.9 H 36.
== END 2021-11-09 21:14 | disposition hospice, inpatient (51) | DRG 871 ==
LOC: ANHED 06:09 → ANHICU 06:40
PROVIDERS: Internal Medicine; Admitting Provider Internal Medicine; Emergency Provider Emergency Medicine; PCP Family Medicine; Visit Provider Student in an Organized Health Care Education/Training Program
DX: A41.9 Sepsis, unspecified organism (principal); J96.21 Acute and chronic respiratory failure with hypoxia; C78.00 Secondary malignant neoplasm of unspecified lung; C78.7 Secondary malignant neoplasm of liver and intrahepatic bile duct; C68.9 Malignant neoplasm of urinary organ, unspecified; E87.2 Acidosis; I13.0 Hypertensive heart and chronic kidney disease with heart failure and stage 1 through stage 4 chronic kidney disease, or unspecified chronic kidney disease; N17.9 Acute kidney failure, unspecified; K92.1 Melena; J43.9 Emphysema, unspecified; I27.81 Cor pulmonale (chronic); I50.9 Heart failure, unspecified; N18.9 Chronic kidney disease, unspecified; R19.7 Diarrhea, unspecified; E87.5 Hyperkalemia; F10.10 Alcohol abuse, uncomplicated; R31.9 Hematuria, unspecified; K80.20 Calculus of gallbladder without cholecystitis without obstruction; N26.1 Atrophy of kidney (terminal); Z87.891 Personal history of nicotine dependence; Z20.822 Contact with and (suspected) exposure to COVID-19; Z66 Do not resuscitate; Z96.0 Presence of urogenital implants; Z87.442 Personal history of urinary calculi; Z99.81 Dependence on supplemental oxygen; Z86.16 Personal history of COVID-19; Z95.828 Presence of other vascular implants and grafts; Z86.711 Personal history of pulmonary embolism; Z86.718 Personal history of other venous thrombosis and embolism; Z95.9 Presence of cardiac and vascular implant and graft, unspecified
CPT/HCPCS: 36415; 36600; 71045; 71250; 74176; 78580; 80048; 80053; 81001; 82550; 82805; 83605; 83735; 83880; 84484; 85025; 85027; 85610; 85730; 87040; 87077; 87086; 87088; 87493; 87804; 93005; 93306; 93970; 94640; 96360; 96361; 99285; A9270; A9540; C9113; C9803; J0131; J0610; J1644; J1650; J1720; J2270; J2543; J2930; J3370; J7030; J7040; J7120; P9045; P9047; U0003; U0005

== ENCOUNTER 2021-11-09 19:30 | HOS | payer OTHER, MEDICARE, SELFPAY ==
[2021-11-09 22:25] VITALS: O2SAT 100
[2021-11-09] MEDS: MORPHINE SULFATE INJ (*CRX) 50 MG in SODIUM CHLORIDE 0.9% IV 95 ML IV CONT (22:32)
[2021-11-09 23:54] VITALS: BMI 20.3
[2021-11-10] VITALS (7 sets, daily range): BP systolic 98–110; BP diastolic 61–69; PULSE 91–106; RESP 16–21; TEMP 36.1–37.6; O2SAT 94–100
--- NOTE | 2021-11-10 00:51 | ADMGEN ---
This patient, Jarvis Nuno, was transferred to [facility] Surg Room 318-01 at 0040. Patient/family oriented to hospital policies and general routines including ID bracelet, bed and alarms, visiting hours, pain management, procedures, bathroom and other care routines, personal items, smoking policy, room service/diet, and visiting hours. Information on how to activate the Rapid Response Team has been discussed. Patient/Family are encouraged to report perceived risks to care and to ask questions if they do not understand what they are told or what they should do.
[2021-11-10] MEDS: ARTIFICIAL TEARS OPHTH SOLN 15 ML BOTTLE 1 DROP EACH EYE ×2 (09:05→16:44)
--- NOTE | 2021-11-10 11:41 | PM.DS ---
DS: Admitting Diagnosis Discharge Date 11/09/21 Admitting Diagnosis Acute on chronic respiratory failure secondary to metastatic urothelial bladder cancer, COPD, sepsis DS: Discharge Diagnosis Discharge Diagnosis (1) Urothelial cancer: Code(s): C68.9 - Malignant neoplasm of urinary organ, unspecified Status: Acute (2) Metabolic acidosis: Code(s): E87.2 - Acidosis Status: Acute (3) Hyperkalemia: Code(s): E87.5 - Hyperkalemia Status: Resolved (4) Acute kidney injury superimposed on chronic kidney disease: Code(s): N17.9 - Acute kidney failure, unspecified; N18.9 - Chronic kidney disease, unspecified Status: Acute (5) VTE (venous thromboembolism): Code(s): I82.90 - Acute embolism and thrombosis of unspecified vein Status: Acute (6) Lactic acidosis: Code(s): E87.2 - Acidosis Status: Acute (7) Acute and chronic respiratory failure: Code(s): J96.20 - Acute and chronic respiratory failure, unspecified whether with hypoxia or hypercapnia Status: Acute DS: Summary Hospital Course Reason for hospitalization: Acute hypoxic respiratory failure Hospital Course: Patient is a 76-year-old male past medical history of severe emphysema COPD, chronic respiratory failure, alcohol tobacco abuse, urothelial cancer bladder since 2018 presents to the ED with complaints of dyspnea. 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 November 2019 was on salvage chemotherapy. He was on enfortumab vedotin. Subsequently developed COVID pneumonia and pulmonary embolism. On 10/31/2021 with discussion with family and Oncology he was deemed not to be a candidate for further therapies for his cancer. Patient was sent home with 4-5 L of oxygen by nasal cannula. Patient was admitted to the ICU for sepsis, acute hypoxic respiratory failure. Was put on heparin drip for presumed pulmonary embolism (he has a history of PE in November 2020) and he is at risk with his cancer diagnosis. He met sepsis criteria for UTI. Was placed on empiric antibiotics [facility] ICU. He started developing hematuria and rectal tube was placed for diarrhea. I (along with nursing care coordinators) had extensive conversation with patient's family including , son, daughter about hospice. After an hour long conversation patient's , the decision maker, agreed to do not resuscitate and comfort care measures only. We will stop lab draws, IV antibiotics, any further workup. We consulted hospice agencies to see if patient will qualify for inpatient hospice. Family agreed to [facility]. Hospice agencies recommending inpatient hospice, patient to be discharged to hospice team. Family understand agree with plan. Status at Discharge Cognitive/behavioral status at discharge: Confused Functional status at discharge: bed bound Overall status at discharge: patient is not back to baseline Time Spent with Patient Time attestation: Total time spent providing and/or coordinating discharge services:90 Time spent: Greater than 30 minutes Specific discharge activities: Hospice Exam Narrative: - GENERAL: Frail male in respiratory distress. - EYES: EOMI. Anicteric. - HENT: Moist mucous membranes. - LUNGS: Crackles bilaterally, diminished lung bases. - CARDIOVASCULAR: Regular rate and rhythm. No murmur. No JVD. - ABDOMEN: Soft, non-tender and non-distended. No palpable masses. - : Vences catheter with hematuria. - EXTREMITIES: No edema. Peripheral pulses 2+. Non-tender. - NEUROLOGIC: No focal neurological deficits. CN II-XII grossly intact. - PSYCHIATRIC: Awake, Alert and oriented. Appropriate mood and affect. - SKIN: No rashes or lesions. Warm. - LYMPH: No cervical lymphadenopathy. DS: Data Data Completed and Pending Completed studies during hospitalization: Laboratory Results - last 24 hr 11/08/21 11/08/21 11/09/21 19:06 19:11 03:03 WBC 43.9 H 36.2
--- NOTE | 2021-11-10 15:07 | PCDIET ---
Pt has been discharged to hospice. No further nutritional interventions at this time.
--- NOTE | 2021-11-10 16:26 | PM.IMHP ---
H&P: HPI History of Present Illness Date/Time: 11/10/21 16:26 Chief Complaint: Uncontrolled pain Narrative: This unfortunate 76-year-old gentleman with known metastatic urothelial cancer was receiving palliative chemotherapy and radiation. He was on home oxygen due to COPD and heart failure. He was on 4-5 L per day. He was eating very poorly and losing weight according to his . He was able to walk but shuffled. His balance was poor. He fell at home and oxygen saturation was or in the low 80s. summoned 911. He was brou to emergency department November 08 and found to be hypotensive with leukocytosis and abnormal urinalysis as well as bilateral infiltrates and elevated lactic acid. Lactic acid resolved with fluid resuscitation and norepinephrine. He was treated with vancomycin Zosyn. Blood cultures returned negative. Urine culture showed 50 minute 1000 B strep. He was more alert with fluid resuscitation. However family wished comfort care only due to his stage IV cancer and poor functional status. On November 09 he was admitted to inpatient hospice service. At that time he was not eating and drinking well. He was receiving morphine 2 mg every 2 hours p.r.n. fairly regularly. Although family was educated about the possibility of opioid mediated neurotoxicity with morphine in the presence of kidney failure they wish to continue the morphine as it was working well for him. He was comfortable overnight. Today according to his was at bedside he is eating better drinking fluids and more alert than he has been. His main complaint at home and been low back pain mainly with ambulation some arrest. He is currently pain-free at rest. Review of Systems Review of Systems: Denied pain or dyspnea at rest. No dysuria hematuria with urinary catheter. Generalized weakness but nothing focal. Sleeping most of the time and bed-bound. A bit confused but not agitated. [facility] Past Medical History Medical History (Updated 11/10/21 @ 16:45 by Severino Manuel MD) Bladder cancer Congestive heart failure COPD (chronic obstructive pulmonary disease) Hypoxia Pneumonia due to COVID-19 virus Pulmonary embolism, bilateral Tobacco abuse Urothelial cancer VTE (venous thromboembolism) Surgical History Surgical History Status post placement of arteriovenous graft Family History Family History Father Family history of chronic obstructive pulmonary disease Mother Family history of atrial fibrillation Social History Social History (Updated 11/10/21 @ 16:46 by Severino Manuel MD) Social History: Code status: DNR Smoking packs per day: 1 Smoking cigarettes per day: 20.0 Years smoked: 65 Smoking pack-years: 65.00 Smoking status: Former smoker Tobacco type: cigarettes Second hand tobacco smoke exposure: No Smoking end date: 11/24/20 Alcohol intake: unknown Substance use: never Substance use type: does not use Additional occupation/education comments: S[employer] Gender identity (if verbalized by the patient): Male Spiritual care concerns: No Meds Home Medications and Allergies Home Medications Medication Instructions Recorded Confirmed Type tramadol 100 mg tablet 50 mg PO Q6H PRN 12/13/20 11/10/21 History albuterol sulfate 2.5 mg INHALATION QID PRN 11/08/21 11/10/21 History azithromycin See Rx Instructions .ROUTE .COMPLEX 11/08/21 11/10/21 History mirtazapine 15 mg PO HS 11/08/21 11/10/21 History prednisone 5 mg PO DAILY 11/08/21 11/10/21 History Allergies Allergy/AdvReac Type Severity Reaction Status Date / Time No Known Allergies Allergy Verified 12/21/20 14:37 Vital Signs Vital Signs - 24 hr 11/09/21 22:25 11/10/21 01:00 11/10/21 05:38 Temperature 97.6 F Pulse Rate 91 Respiratory Rate 16 Blood Pressure 98/61 L Pulse Oximetry 100 100 100 11/10/21 08:
[2021-11-10] MEDS: MORPHINE SULFATE (*CRX) 2 MG/ML INJ IV PUSH (20:46)
[2021-11-10] MEDS: MORPHINE SULFATE INJ (*CRX) 50 MG in SODIUM CHLORIDE 0.9% IV 95 ML IV CONT (22:52)
[2021-11-11] MEDS: ARTIFICIAL TEARS OPHTH SOLN 15 ML BOTTLE 1 DROP EACH EYE ×3 (07:34→22:31)
[2021-11-11 07:46] VITALS: PULSE 106; RESP 16; O2SAT 99
[2021-11-11 08:49] VITALS: O2SAT 95
--- NOTE | 2021-11-11 10:08 | PC.NURSE ---
Called [facility] to change suppository tylenol to syrup form.
[2021-11-11 10:31] VITALS: TEMP 37.7
[2021-11-11] MEDS: ACETAMINOPHEN ELIXIR 325 MG/10.15 ML UDC 650 MG PO (10:31)
[2021-11-11 12:02] VITALS: TEMP 37.1
[2021-11-11] MEDS: GLYCOPYRROLATE INJ (*SP) 0.2 MG/ML VIAL 0.1 MG IV PUSH (13:44)
[2021-11-11 14:00] VITALS: BP 100/56; PULSE 103; RESP 18; TEMP 36.9; O2SAT 97
--- NOTE | 2021-11-11 17:45 | PM.IMPN ---
Progress Note: A&P Assessment and Plan (1) Palliative care by specialist: Code(s): Z51.5 - Encounter for palliative care Status: Acute Assessment and Plan: Meets hospice inpatient criteria due to requiring continuous IV narcotic for control of pain. Pending course over the next 24 hours consider adding adjuvant analgesics therapy and transitioning to oral analgesics. Remainder palliative regimen as prescribed. 11/11: Added PO amoxicillin for culture + strep in urine, fever. D/w spouse and daughter. 11/11: Discussed with patient and spouse and daughter at bedside and they do have a contingency plan (that his did not seem to wish to discuss at this time) if he should stabilize and wean from continuous IV narcotics. Patient wants to go home but and daughter are concerned about his safety there. (2) COPD (chronic obstructive pulmonary disease): Qualifiers: COPD type: COPD with acute exacerbation Qualified Code(s): J44.1 - Chronic obstructive pulmonary disease with (acute) exacerbation Code(s): J44.9 - Chronic obstructive pulmonary disease, unspecified Status: Acute (3) Bladder cancer: Code(s): C67.9 - Malignant neoplasm of bladder, unspecified Status: Acute (4) VTE (venous thromboembolism): Code(s): I82.90 - Acute embolism and thrombosis of unspecified vein Status: Acute (5) Congestive heart failure: Code(s): I50.9 - Heart failure, unspecified Status: Acute (6) Acute kidney injury superimposed on chronic kidney disease: Code(s): N17.9 - Acute kidney failure, unspecified; N18.9 - Chronic kidney disease, unspecified Status: Acute (7) Sepsis: Code(s): A41.9 - Sepsis, unspecified organism Status: Resolved Subjective Date/time seen: 11/11/21 17:45 Interval history: 11/11 visit: Denied pain. Some cough, sob intermittently. Bowels moved. Vences in place. No bleeding. Low grade fever overnight, treated with tylenol. Review of Systems Review of Systems: All systems reviewed & are unremarkable except as noted in HPI and below Exam Narrative: Chronically ill-appearing and frail elderly gentleman in no acute distress. Alert. Oriented to person and knows he is in a hospital, but not which one. Eyes sclerae nonicteric oral mucosa moist. Neck without JVD. Chest with bilateral coarse breath sounds and scattered crackles, increased AP diameter, prolonged expiratory phase. Heart normal S1-S2 with regular rate and no audible clicks gallops murmurs or rubs. Extremities without edema or cyanosis. Abdomen scaphoid bowel sounds present soft nontender no palpable masses. Musculoskeletal diffuse muscle wasting and symmetric weakness. Neurologic cranial nerves 3-12 intact to visual inspection. Objective Data Vital Signs Vital Signs: Vital Signs - 24 hr 11/10/21 20:47 11/10/21 22:00 11/11/21 07:46 Temperature 99.7 F H Pulse Rate 106 H 106 H Respiratory Rate 16 16 Blood Pressure 110/63 Pulse Oximetry 94 99 99 11/11/21 08:49 11/11/21 10:31 11/11/21 12:02 Temperature 100 F H 98.8 F Pulse Rate Respiratory Rate Blood Pressure Pulse Oximetry 95 11/11/21 14:00 Temperature 98.5 F Pulse Rate 103 H Respiratory Rate 18 Blood Pressure 100/56 L Pulse Oximetry 97 Intake/Output Intake/Output: Intake & Output 11/08/21 11/09/21 11/10/21 11/11/21 23:59 23:59 23:59 23:59 Intake Total 510 360 Output Total 225 775 275 Balance -225 -265 85 Meds/Results Medications: Active Medications Generic Name Dose Route Start Last Admin Trade Name Freq PRN Reason Stop Dose Admin Acetaminophen 650 mg 11/11/21 10:07 11/11/21 10:31 Acetaminophen Elixir 325 Mg/10.15 Ml Udc PO 650 mg Q6H PRN Administration Mild Pain (1-3) or Fever Artificial Tears 1 drop 11/09/21 23:00 11/11/21 14:50 Artificial Tears Ophth Soln 15 Ml Bottle EACH EYE 1 drop Q8H ADAM Administration Artificial T
[2021-11-11] MEDS: predniSONE 20 MG TABLET PO (18:23)
[2021-11-11] MEDS: AMOXICILLIN 500 MG CAPSULE PO (21:21)
[2021-11-11 22:00] VITALS: BP 115/65; PULSE 113; RESP 18; TEMP 37.4; O2SAT 100
[2021-11-11] MEDS: MORPHINE SULFATE INJ (*CRX) 50 MG in SODIUM CHLORIDE 0.9% IV 95 ML IV CONT (22:25)
[2021-11-12 08:00] VITALS: PULSE 97; RESP 14; O2SAT 96
[2021-11-12] MEDS: predniSONE 20 MG TABLET PO (08:58)
[2021-11-12] MEDS: ARTIFICIAL TEARS OPHTH SOLN 15 ML BOTTLE 1 DROP EACH EYE ×3 (08:58→22:15)
[2021-11-12] MEDS: AMOXICILLIN 500 MG CAPSULE PO ×2 (08:58→20:09)
[2021-11-12 10:22] VITALS: BP 101/59; PULSE 97; RESP 14; TEMP 36.6; O2SAT 96
--- NOTE | 2021-11-12 10:31 | PC.NURSE ---
offered ativan and morphine for increase restlessness, family declined at this time. Called [facility] for bendryl order, awaiting call back from hospice nurse.
[2021-11-12] MEDS: diphenhydrAMINE HCl INJ 50 MG/ML VIAL 25 MG IV PUSH ×2 (11:37→19:27)
--- NOTE | 2021-11-12 17:29 | PC.NURSE ---
[facility] hospice nurse out to visit pt, NNO. Family thinking about taking pt home Saturday if pt condition improves.
[2021-11-12] MEDS: LORazepam INJ (*CRX) 2 MG/ML VIAL 1 MG IV PUSH (20:10)
--- NOTE | 2021-11-12 21:23 | PM.IMPN ---
Progress Note: A&P Assessment and Plan (1) Palliative care by specialist: Code(s): Z51.5 - Encounter for palliative care Status: Acute Assessment and Plan: Meets hospice inpatient criteria due to requiring continuous IV narcotic for control of pain. Pending course over the next 24 hours consider adding adjuvant analgesics therapy and transitioning to oral analgesics. Remainder palliative regimen as prescribed. 11/11: Added PO amoxicillin for culture + strep in urine, fever. D/w spouse and daughter. 11/11: Discussed with patient and spouse and daughter at bedside and they do have a contingency plan (that his did not seem to wish to discuss at this time) if he should stabilize and wean from continuous IV narcotics. Patient wants to go home but and daughter are concerned about his safety there. 11/12: D/c'd morphine and started hydromorphone 0.25mg/hr, 1mg q 2 hr prn 11/12: D/c'd amoxicillin due to inability to swallow med and started IV ceftriaxone 1 gm q 24 hours (2) COPD (chronic obstructive pulmonary disease): Qualifiers: COPD type: COPD with acute exacerbation Qualified Code(s): J44.1 - Chronic obstructive pulmonary disease with (acute) exacerbation Code(s): J44.9 - Chronic obstructive pulmonary disease, unspecified Status: Acute (3) Bladder cancer: Code(s): C67.9 - Malignant neoplasm of bladder, unspecified Status: Acute (4) VTE (venous thromboembolism): Code(s): I82.90 - Acute embolism and thrombosis of unspecified vein Status: Acute (5) Congestive heart failure: Code(s): I50.9 - Heart failure, unspecified Status: Acute (6) Acute kidney injury superimposed on chronic kidney disease: Code(s): N17.9 - Acute kidney failure, unspecified; N18.9 - Chronic kidney disease, unspecified Status: Acute (7) Sepsis: Code(s): A41.9 - Sepsis, unspecified organism Status: Resolved Subjective Date/time seen: 11/12/21 21:23 Interval history: 11/12 telehealth visit: More confused. Ate on 10-15% at two meals and 0% at breakfast. Pain control seems alright, but family would now like to try hydromorphone due to increased confusion. Did get benadryl IV earlier today for itching. Review of Systems Review of Systems: ROS unobtainable: Yes unobtainable due to medical condition Exam Narrative: Ox1. Objective Data Vital Signs Vital Signs: Vital Signs - 24 hr 11/11/21 22:00 11/12/21 08:00 11/12/21 10:22 Temperature 99.4 F 97.9 F Pulse Rate 113 H 97 97 Respiratory Rate 18 14 14 Blood Pressure 115/65 101/59 L Pulse Oximetry 100 96 96 Intake/Output Intake/Output: Intake & Output 11/09/21 11/10/21 11/11/21 11/12/21 23:59 23:59 23:59 23:59 Intake Total 510 1540 195 Output Total 225 845 125 650 Balance -225 -548 1015 -525 Meds/Results Medications: Active Medications Generic Name Dose Route Start Last Admin Trade Name Freq PRN Reason Stop Dose Admin Acetaminophen 650 mg 11/11/21 10:07 11/11/21 10:31 Acetaminophen Elixir 325 Mg/10.15 Ml Udc PO 650 mg Q6H PRN Administration Mild Pain (1-3) or Fever Amoxicillin 500 mg 11/11/21 21:00 11/12/21 20:09 Amoxicillin 500 Mg Capsule PO 500 mg Q12HR ADAM Administration Artificial Tears 1 drop 11/09/21 23:00 11/12/21 15:53 Artificial Tears Ophth Soln 15 Ml Bottle EACH EYE 1 drop Q8H ADAM Administration Artificial Tears 1 drop 11/09/21 22:16 Artificial Tears Ophth Soln 15 Ml Bottle EACH EYE Q4H PRN Dry Eye(s) Bisacodyl 10 mg 11/09/21 22:14 Bisacodyl 10 Mg Suppository RECTAL QAM PRN Constipation Diphenhydramine HCl 25 mg 11/12/21 11:30 11/12/21 19:27 Diphenhydramine Hcl Inj 50 Mg/Ml Vial IV PUSH 25 mg Q6H PRN Administration Itching Glycopyrrolate 0.1 mg 11/09/21 22:17 11/11/21 13:44 Glycopyrrolate Inj (*Sp) 0.2 Mg/Ml Vial IV PUSH 0.1 mg Q4H PRN Administration
[2021-11-12 22:00] VITALS: BP 108/66; PULSE 87; RESP 20; TEMP 36; O2SAT 100
[2021-11-12] MEDS: HYDROmorphone HCL/PF (*CRX) 50 MG in SODIUM CHLORIDE 0.9% IV 95 ML IV CONT (22:07)
[2021-11-13] MEDS: LORazepam INJ (*CRX) 2 MG/ML VIAL 1 MG IV PUSH (05:38)
[2021-11-13] MEDS: diphenhydrAMINE HCl INJ 50 MG/ML VIAL 25 MG IV PUSH (05:38)
[2021-11-13 08:00] VITALS: O2SAT 96
[2021-11-13] MEDS: ARTIFICIAL TEARS OPHTH SOLN 15 ML BOTTLE 1 DROP EACH EYE (09:32)
[2021-11-13] MEDS: predniSONE 20 MG TABLET PO (09:32)
[2021-11-13 14:00] VITALS: BP 108/69; PULSE 93; RESP 19; TEMP 36.5; O2SAT 99
--- NOTE | 2021-11-13 16:46 | PM.IMPN ---
Progress Note: A&P Assessment and Plan (1) Palliative care by specialist: Code(s): Z51.5 - Encounter for palliative care Status: Acute Assessment and Plan: Meets hospice inpatient criteria due to requiring continuous IV narcotic for control of pain. Pending course over the next 24 hours consider adding adjuvant analgesics therapy and transitioning to oral analgesics. Remainder palliative regimen as prescribed. 11/11: Added PO amoxicillin for culture + strep in urine, fever. D/w spouse and daughter. 11/11: Discussed with patient and spouse and daughter at bedside and they do have a contingency plan (that his did not seem to wish to discuss at this time) if he should stabilize and wean from continuous IV narcotics. Patient wants to go home but and daughter are concerned about his safety there. 11/12: D/c'd morphine and started hydromorphone 0.25mg/hr, 1mg q 2 hr prn 11/12: D/c'd amoxicillin due to inability to swallow med and started IV ceftriaxone 1 gm q 24 hours 11/13: Continue current regimen as he is declining but more comfortable with IV hydromorphone (2) COPD (chronic obstructive pulmonary disease): Qualifiers: COPD type: COPD with acute exacerbation Qualified Code(s): J44.1 - Chronic obstructive pulmonary disease with (acute) exacerbation Code(s): J44.9 - Chronic obstructive pulmonary disease, unspecified Status: Acute (3) Bladder cancer: Code(s): C67.9 - Malignant neoplasm of bladder, unspecified Status: Acute (4) VTE (venous thromboembolism): Code(s): I82.90 - Acute embolism and thrombosis of unspecified vein Status: Acute (5) Congestive heart failure: Code(s): I50.9 - Heart failure, unspecified Status: Acute (6) Acute kidney injury superimposed on chronic kidney disease: Code(s): N17.9 - Acute kidney failure, unspecified; N18.9 - Chronic kidney disease, unspecified Status: Acute (7) Sepsis: Code(s): A41.9 - Sepsis, unspecified organism Status: Resolved Subjective Date/time seen: 11/13/21 16:46 Interval history: 11/13 visit: Agitated this AM. Less itching now. Sleeping most of day. Minimal po intake. Review of Systems Review of Systems: ROS unobtainable: Yes unobtainable due to medical condition Exam Narrative: Frail elderly mail in nad. no jvd chest coarse bs heart rr extr no edema abd bs hypoactive neuro cn symmetric to visual inspection Objective Data Vital Signs Vital Signs: Vital Signs - 24 hr 11/12/21 22:00 11/13/21 08:00 11/13/21 14:00 Temperature 96.8 F L 97.7 F Pulse Rate 87 93 Respiratory Rate 20 19 Blood Pressure 108/66 108/69 Pulse Oximetry 100 96 99 Intake/Output Intake/Output: Intake & Output 11/10/21 11/11/21 11/12/21 11/13/21 23:59 23:59 23:59 23:59 Intake Total 510 1540 250 Output Total 775 525 650 400 Balance -265 1015 -400 -400 Meds/Results Medications: Active Medications Generic Name Dose Route Start Last Admin Trade Name Freq PRN Reason Stop Dose Admin Acetaminophen 650 mg 11/11/21 10:07 11/11/21 10:31 Acetaminophen Elixir 325 Mg/10.15 Ml Udc PO 650 mg Q6H PRN Administration Mild Pain (1-3) or Fever Artificial Tears 1 drop 11/09/21 23:00 11/13/21 09:32 Artificial Tears Ophth Soln 15 Ml Bottle EACH EYE 1 drop Q8H ADAM Administration Artificial Tears 1 drop 11/09/21 22:16 Artificial Tears Ophth Soln 15 Ml Bottle EACH EYE Q4H PRN Dry Eye(s) Bisacodyl 10 mg 11/09/21 22:14 Bisacodyl 10 Mg Suppository RECTAL QAM PRN Constipation Diphenhydramine HCl 25 mg 11/12/21 11:30 11/13/21 05:38 Diphenhydramine Hcl Inj 50 Mg/Ml Vial IV PUSH 25 mg Q6H PRN Administration Itching Glycopyrrolate 0.1 mg 11/09/21 22:17 11/11/21 13:44 Glycopyrrolate Inj (*Sp) 0.2 Mg/Ml Vial IV PUSH 0.1 mg Q4H PRN Administration Increased Secretions Hydromorphone HCl 1 mg
[2021-11-13 20:00] VITALS: PULSE 108; RESP 16; O2SAT 98
[2021-11-13 22:00] VITALS: BP 119/72; PULSE 108; RESP 16; TEMP 37.9; O2SAT 98
[2021-11-14] MEDS: HYDROmorphone HCL/PF (*CRX) 50 MG in SODIUM CHLORIDE 0.9% IV 95 ML IV CONT (00:34)
[2021-11-14 02:39] VITALS: O2SAT 97
[2021-11-14 08:00] VITALS: O2SAT 97
[2021-11-14] MEDS: ARTIFICIAL TEARS OPHTH SOLN 15 ML BOTTLE 1 DROP EACH EYE ×2 (08:57→21:11)
[2021-11-14 14:00] VITALS: BP 99/63; PULSE 102; RESP 19; TEMP 36.2; O2SAT 100
--- NOTE | 2021-11-14 14:50 | PM.IMPN ---
Progress Note: A&P Assessment and Plan (1) Palliative care by specialist: Code(s): Z51.5 - Encounter for palliative care Status: Acute Assessment and Plan: Meets hospice inpatient criteria due to requiring continuous IV narcotic for control of pain. Pending course over the next 24 hours consider adding adjuvant analgesics therapy and transitioning to oral analgesics. Remainder palliative regimen as prescribed. 11/11: Added PO amoxicillin for culture + strep in urine, fever. D/w spouse and daughter. 11/11: Discussed with patient and spouse and daughter at bedside and they do have a contingency plan (that his did not seem to wish to discuss at this time) if he should stabilize and wean from continuous IV narcotics. Patient wants to go home but and daughter are concerned about his safety there. 11/12: D/c'd morphine and started hydromorphone 0.25mg/hr, 1mg q 2 hr prn 11/12: D/c'd amoxicillin due to inability to swallow med and started IV ceftriaxone 1 gm q 24 hours 11/13: Continue current regimen as he is declining but more comfortable with IV hydromorphone 11/14: Family wishes to plan for discharge 11/16 if circumstances permit (2) COPD (chronic obstructive pulmonary disease): Qualifiers: COPD type: COPD with acute exacerbation Qualified Code(s): J44.1 - Chronic obstructive pulmonary disease with (acute) exacerbation Code(s): J44.9 - Chronic obstructive pulmonary disease, unspecified Status: Acute (3) Bladder cancer: Code(s): C67.9 - Malignant neoplasm of bladder, unspecified Status: Acute (4) VTE (venous thromboembolism): Code(s): I82.90 - Acute embolism and thrombosis of unspecified vein Status: Acute (5) Congestive heart failure: Code(s): I50.9 - Heart failure, unspecified Status: Acute (6) Acute kidney injury superimposed on chronic kidney disease: Code(s): N17.9 - Acute kidney failure, unspecified; N18.9 - Chronic kidney disease, unspecified Status: Acute (7) Sepsis: Code(s): A41.9 - Sepsis, unspecified organism Status: Resolved Subjective Date/time seen: 11/14/21 14:50 Interval history: 11/14 visit: Sleeping most of day. Minimal po intake (1/2 millicent estes). No issues with pain or dyspnea. Review of Systems Review of Systems: ROS unobtainable: Yes unobtainable due to medical condition Exam Narrative: Frail elderly mail in nad. no jvd chest coarse bs heart rr extr no edema abd bs hypoactive neuro cn symmetric to visual inspection psych ox1 Objective Data Vital Signs Vital Signs: Vital Signs - 24 hr 11/13/21 20:00 11/13/21 22:00 11/14/21 02:39 Temperature 100.2 F H Pulse Rate 108 H 108 H Respiratory Rate 16 16 Blood Pressure 119/72 Pulse Oximetry 98 98 97 11/14/21 08:00 11/14/21 14:00 Temperature 97.1 F L Pulse Rate 102 H Respiratory Rate 19 Blood Pressure 99/63 L Pulse Oximetry 97 100 Intake/Output Intake/Output: Intake & Output 11/11/21 11/12/21 11/13/21 11/14/21 23:59 23:59 23:59 23:59 Intake Total 1540 250 50 265 Output Total 483 350 6470 300 Balance 1015 -400 -1110 -35 Meds/Results Medications: Active Medications Generic Name Dose Route Start Last Admin Trade Name Freq PRN Reason Stop Dose Admin Acetaminophen 650 mg 11/11/21 10:07 11/11/21 10:31 Acetaminophen Elixir 325 Mg/10.15 Ml Udc PO 650 mg Q6H PRN Administration Mild Pain (1-3) or Fever Artificial Tears 1 drop 11/09/21 23:00 11/14/21 08:57 Artificial Tears Ophth Soln 15 Ml Bottle EACH EYE 1 drop Q8H ADAM Administration Artificial Tears 1 drop 11/09/21 22:16 Artificial Tears Ophth Soln 15 Ml Bottle EACH EYE Q4H PRN Dry Eye(s) Bisacodyl 10 mg 11/09/21 22:14 Bisacodyl 10 Mg Suppository RECTAL QAM PRN Constipation Diphenhydramine HCl 25 mg 11/12/21 11:30 11/13/21 05:38 Diphenhydramine Hcl Inj 50 Mg/Ml Vial IV PUSH 25 mg
[2021-11-14] MEDS: LORazepam INJ (*CRX) 2 MG/ML VIAL 1 MG IV PUSH (17:12)
[2021-11-14 20:00] VITALS: PULSE 102; RESP 19; O2SAT 100
[2021-11-14 22:00] VITALS: BP 113/60; PULSE 108; RESP 16; TEMP 36.6; O2SAT 92
[2021-11-15] MEDS: HYDROmorphone HCL/PF (*CRX) 50 MG in SODIUM CHLORIDE 0.9% IV 95 ML IV CONT (03:34)
[2021-11-15] MEDS: ARTIFICIAL TEARS OPHTH SOLN 15 ML BOTTLE 1 DROP EACH EYE ×3 (07:55→22:33)
[2021-11-15 08:00] VITALS: BP 106/77; PULSE 110; RESP 22; TEMP 36.7; O2SAT 99
[2021-11-15] MEDS: predniSONE 20 MG TABLET PO (09:00)
--- NOTE | 2021-11-15 17:12 | PM.IMPN ---
Progress Note: A&P Assessment and Plan (1) Palliative care by specialist: Code(s): Z51.5 - Encounter for palliative care Status: Acute Assessment and Plan: Meets hospice inpatient criteria due to requiring continuous IV narcotic for control of pain. Pending course over the next 24 hours consider adding adjuvant analgesics therapy and transitioning to oral analgesics. Remainder palliative regimen as prescribed. 11/11: Added PO amoxicillin for culture + strep in urine, fever. D/w spouse and daughter. 11/11: Discussed with patient and spouse and daughter at bedside and they do have a contingency plan (that his did not seem to wish to discuss at this time) if he should stabilize and wean from continuous IV narcotics. Patient wants to go home but and daughter are concerned about his safety there. 11/12: D/c'd morphine and started hydromorphone 0.25mg/hr, 1mg q 2 hr prn 11/12: D/c'd amoxicillin due to inability to swallow med and started IV ceftriaxone 1 gm q 24 hours 11/13: Continue current regimen as he is declining but more comfortable with IV hydromorphone 11/14: Family wishes to plan for discharge 11/16 if circumstances permit 11/15: d/w dtr at bedside care and disposition (2) COPD (chronic obstructive pulmonary disease): Qualifiers: COPD type: COPD with acute exacerbation Qualified Code(s): J44.1 - Chronic obstructive pulmonary disease with (acute) exacerbation Code(s): J44.9 - Chronic obstructive pulmonary disease, unspecified Status: Acute (3) Bladder cancer: Code(s): C67.9 - Malignant neoplasm of bladder, unspecified Status: Acute (4) VTE (venous thromboembolism): Code(s): I82.90 - Acute embolism and thrombosis of unspecified vein Status: Acute (5) Congestive heart failure: Code(s): I50.9 - Heart failure, unspecified Status: Acute (6) Acute kidney injury superimposed on chronic kidney disease: Code(s): N17.9 - Acute kidney failure, unspecified; N18.9 - Chronic kidney disease, unspecified Status: Acute (7) Sepsis: Code(s): A41.9 - Sepsis, unspecified organism Status: Resolved Subjective Date/time seen: 11/15/21 17:12 Interval history: 11/15 visit: Restless earlier, but refused Ativan. Sipped fluids. No solid food. Awake most of day. Fecal tube required repositioning. Family wants to take him home 11/17 or 11/18. Review of Systems Review of Systems: ROS unobtainable: Yes unobtainable due to medical condition Exam Narrative: Frail elderly mail in nad. no jvd chest coarse bs heart rr extr no edema abd bs hypoactive neuro cn symmetric to visual inspection psych ox1 Objective Data Vital Signs Vital Signs: Vital Signs - 24 hr 11/14/21 20:00 11/14/21 22:00 11/15/21 08:00 Temperature 97.8 F 98.0 F Pulse Rate 102 H 108 H 110 H Respiratory Rate 19 16 22 H Blood Pressure 113/60 106/77 Pulse Oximetry 100 92 99 Intake/Output Intake/Output: Intake & Output 11/12/21 11/13/21 11/14/21 11/15/21 23:59 23:59 23:59 23:59 Intake Total 250 50 265 370 Output Total 650 5469 609 [address] [facility], [place] -400 -1110 -135 -780 Meds/Results Medications: Active Medications Generic Name Dose Route Start Last Admin Trade Name Freq PRN Reason Stop Dose Admin Acetaminophen 650 mg 11/11/21 10:07 11/11/21 10:31 Acetaminophen Elixir 325 Mg/10.15 Ml Udc PO 650 mg Q6H PRN Administration Mild Pain (1-3) or Fever Artificial Tears 1 drop 11/09/21 23:00 11/15/21 14:14 Artificial Tears Ophth Soln 15 Ml Bottle EACH EYE 1 drop Q8H ADAM Administration Artificial Tears 1 drop 11/09/21 22:16 Artificial Tears Ophth Soln 15 Ml Bottle EACH EYE Q4H PRN Dry Eye(s) Bisacodyl 10 mg 11/09/21 22:14 Bisacodyl 10 Mg Suppository RECTAL QAM PRN Constipation Diphenhydramine HCl 25 mg 11/12/21 11:30 11/13/21 05:38 Diphenhydramine Hcl Inj 50 Mg/Ml Vial IV PUSH 25 mg Q6H
[2021-11-15 19:56] VITALS: O2SAT 100
[2021-11-15 21:40] VITALS: BP 105/63; PULSE 106; RESP 16; TEMP 36.7; O2SAT 100
[2021-11-16] MEDS: ARTIFICIAL TEARS OPHTH SOLN 15 ML BOTTLE 1 DROP EACH EYE ×2 (07:56→16:01)
[2021-11-16] MEDS: predniSONE 20 MG TABLET PO (08:50)
[2021-11-16] MEDS: HYDROmorphone HCL/PF (*CRX) 50 MG in SODIUM CHLORIDE 0.9% IV 95 ML IV CONT (10:18)
[2021-11-16] MEDS: LORazepam INJ (*CRX) 2 MG/ML VIAL 1 MG IV PUSH ×2 (10:20→16:01)
[2021-11-16 12:03] VITALS: BP 114/80; PULSE 100; RESP 17; TEMP 36; O2SAT 98
--- NOTE | 2021-11-16 14:57 | PC.NURSE ---
On 11/16/21, the student, [ Onelia Zamora], provided care and completed [facility] documentation on this patient. I have reviewed the student's documentation and agree with the findings.
--- NOTE | 2021-11-16 18:41 | PM.IMPN ---
Progress Note: A&P Assessment and Plan (1) Palliative care by specialist: Code(s): Z51.5 - Encounter for palliative care Status: Acute Assessment and Plan: Meets hospice inpatient criteria due to requiring continuous IV narcotic for control of pain. Pending course over the next 24 hours consider adding adjuvant analgesics therapy and transitioning to oral analgesics. Remainder palliative regimen as prescribed. 11/11: Added PO amoxicillin for culture + strep in urine, fever. D/w spouse and daughter. 11/11: Discussed with patient and spouse and daughter at bedside and they do have a contingency plan (that his did not seem to wish to discuss at this time) if he should stabilize and wean from continuous IV narcotics. Patient wants to go home but and daughter are concerned about his safety there. 11/12: D/c'd morphine and started hydromorphone 0.25mg/hr, 1mg q 2 hr prn 11/12: D/c'd amoxicillin due to inability to swallow med and started IV ceftriaxone 1 gm q 24 hours 11/13: Continue current regimen as he is declining but more comfortable with IV hydromorphone 11/14: Family wishes to plan for discharge 11/16 if circumstances permit 11/15: d/w dtr at bedside care and disposition 11/16: d/w spouse and dtr at bedside plans for possible discharge 11/18 due to caregiver issues and continued need for iv meds (2) COPD (chronic obstructive pulmonary disease): Qualifiers: COPD type: COPD with acute exacerbation Qualified Code(s): J44.1 - Chronic obstructive pulmonary disease with (acute) exacerbation Code(s): J44.9 - Chronic obstructive pulmonary disease, unspecified Status: Acute (3) Bladder cancer: Code(s): C67.9 - Malignant neoplasm of bladder, unspecified Status: Acute (4) VTE (venous thromboembolism): Code(s): I82.90 - Acute embolism and thrombosis of unspecified vein Status: Acute (5) Congestive heart failure: Code(s): I50.9 - Heart failure, unspecified Status: Acute (6) Acute kidney injury superimposed on chronic kidney disease: Code(s): N17.9 - Acute kidney failure, unspecified; N18.9 - Chronic kidney disease, unspecified Status: Acute (7) Sepsis: Code(s): A41.9 - Sepsis, unspecified organism Status: Resolved Subjective Date/time seen: 11/16/21 18:41 Interval history: 11/16: Restless this AM. Received lorazepam x 2. Resting most of afternoon. Only a few drinks of fluid via syringe. Denied pain. Ithcing intermittently. Review of Systems Review of Systems: ROS unobtainable: Yes unobtainable due to medical condition Exam Narrative: Frail elderly mail in nad. no jvd chest coarse bs heart rr extr no edema abd bs hypoactive neuro cn symmetric to visual inspection psych ox1 Objective Data Vital Signs Vital Signs: Vital Signs - 24 hr 11/15/21 19:56 11/15/21 21:40 11/16/21 12:03 Temperature 98.1 F 96.8 F L Pulse Rate 106 H 100 Respiratory Rate 16 17 Blood Pressure 105/63 114/80 Pulse Oximetry 100 100 98 Intake/Output Intake/Output: Intake & Output 11/13/21 11/14/21 11/15/21 11/16/21 23:59 23:59 23:59 23:59 Intake Total 50 265 420 248 Output Total 2202 430 2032 200 Balance -1110 -135 -930 48 Meds/Results Medications: Active Medications Generic Name Dose Route Start Last Admin Trade Name Freq PRN Reason Stop Dose Admin Acetaminophen 650 mg 11/11/21 10:07 11/11/21 10:31 Acetaminophen Elixir 325 Mg/10.15 Ml Udc PO 650 mg Q6H PRN Administration Mild Pain (1-3) or Fever Artificial Tears 1 drop 11/09/21 23:00 11/16/21 16:01 Artificial Tears Ophth Soln 15 Ml Bottle EACH EYE 1 drop Q8H ADAM Administration Artificial Tears 1 drop 11/09/21 22:16 Artificial Tears Ophth Soln 15 Ml Bottle EACH EYE Q4H PRN Dry Eye(s) Bisacodyl 10 mg 11/09/21 22:14 Bisacodyl 10 Mg Suppository RECTAL QAM PRN Constipation Diphenhydramine HCl 25 mg 11/12
[2021-11-16 20:00] VITALS: BP 126/79; PULSE 94; RESP 17; TEMP 35.9; O2SAT 100
[2021-11-16] MEDS: diphenhydrAMINE HCl INJ 50 MG/ML VIAL 25 MG IV PUSH (20:16)
[2021-11-17] MEDS: LORazepam INJ (*CRX) 2 MG/ML VIAL 1 MG IV PUSH (02:08)
[2021-11-17] MEDS: ARTIFICIAL TEARS OPHTH SOLN 15 ML BOTTLE 1 DROP EACH EYE ×3 (05:05→22:09)
[2021-11-17 13:43] VITALS: BP 133/75; PULSE 107; RESP 17; TEMP 36.1; O2SAT 96
--- NOTE | 2021-11-17 16:39 | PM.IMPN ---
Progress Note: A&P Assessment and Plan (1) Palliative care by specialist: Code(s): Z51.5 - Encounter for palliative care Status: Acute Assessment and Plan: Meets hospice inpatient criteria due to requiring continuous IV narcotic for control of pain. Pending course over the next 24 hours consider adding adjuvant analgesics therapy and transitioning to oral analgesics. Remainder palliative regimen as prescribed. 11/11: Added PO amoxicillin for culture + strep in urine, fever. D/w spouse and daughter. 11/11: Discussed with patient and spouse and daughter at bedside and they do have a contingency plan (that his did not seem to wish to discuss at this time) if he should stabilize and wean from continuous IV narcotics. Patient wants to go home but and daughter are concerned about his safety there. 11/12: D/c'd morphine and started hydromorphone 0.25mg/hr, 1mg q 2 hr prn 11/12: D/c'd amoxicillin due to inability to swallow med and started IV ceftriaxone 1 gm q 24 hours 11/13: Continue current regimen as he is declining but more comfortable with IV hydromorphone 11/14: Family wishes to plan for discharge 11/16 if circumstances permit 11/15: d/w dtr at bedside care and disposition 11/16: d/w spouse and dtr at bedside plans for possible discharge 11/18 due to caregiver issues and continued need for iv meds 11/17: d/w spouse at bedisde plan for med transition 11/18; discussed humidity and saline nasal spray to help with PND (2) COPD (chronic obstructive pulmonary disease): Qualifiers: COPD type: COPD with acute exacerbation Qualified Code(s): J44.1 - Chronic obstructive pulmonary disease with (acute) exacerbation Code(s): J44.9 - Chronic obstructive pulmonary disease, unspecified Status: Acute (3) Bladder cancer: Code(s): C67.9 - Malignant neoplasm of bladder, unspecified Status: Acute (4) VTE (venous thromboembolism): Code(s): I82.90 - Acute embolism and thrombosis of unspecified vein Status: Acute (5) Congestive heart failure: Code(s): I50.9 - Heart failure, unspecified Status: Acute (6) Acute kidney injury superimposed on chronic kidney disease: Code(s): N17.9 - Acute kidney failure, unspecified; N18.9 - Chronic kidney disease, unspecified Status: Acute (7) Sepsis: Code(s): A41.9 - Sepsis, unspecified organism Status: Resolved Subjective Date/time seen: 11/17/21 16:39 Interval history: 11/17: Less restless today. Ate a few bites of oatmeal and sherbert. Drank small amounts of orange juice, water, soda. Review of Systems Review of Systems: ROS unobtainable: Yes unobtainable due to medical condition Exam Narrative: Frail elderly mail in nad. no jvd chest coarse bs heart rr extr no edema abd bs hypoactive neuro cn symmetric to visual inspection psych ox1 Objective Data Vital Signs Vital Signs: Vital Signs - 24 hr 11/16/21 20:00 11/17/21 13:43 Temperature 96.6 F L 97 F L Pulse Rate 94 107 H Respiratory Rate 17 17 Blood Pressure 126/79 133/75 Pulse Oximetry 100 96 Intake/Output Intake/Output: Intake & Output 11/14/21 11/15/21 11/16/21 11/17/21 23:59 23:59 23:59 23:59 Intake Total 265 420 248 170 Output Total 400 1350 525 350 Balance -135 -930 -277 -180 Meds/Results Medications: Active Medications Generic Name Dose Route Start Last Admin Trade Name Freq PRN Reason Stop Dose Admin Acetaminophen 650 mg 11/11/21 10:07 11/11/21 10:31 Acetaminophen Elixir 325 Mg/10.15 Ml Udc PO 650 mg Q6H PRN Administration Mild Pain (1-3) or Fever Artificial Tears 1 drop 11/09/21 23:00 11/17/21 14:41 Artificial Tears Ophth Soln 15 Ml Bottle EACH EYE 1 drop Q8H ADAM Administration Artificial Tears 1 drop 11/09/21 22:16 Artificial Tears Ophth Soln 15 Ml Bottle EACH EYE Q4H PRN Dry Eye(s) Bisacodyl 10 mg 11/09/21 22:14 Bisacodyl 10 Mg Suppository RECTAL Q
[2021-11-17] MEDS: SALINE 0.65% NAS SOLN 44 ML BTL 1 SPRAY NASAL (17:51)
[2021-11-17 19:58] VITALS: O2SAT 100
[2021-11-17 22:00] VITALS: BP 130/78; PULSE 107; RESP 18; TEMP 36.3; O2SAT 100
[2021-11-17] MEDS: HYDROmorphone HCL/PF (*CRX) 50 MG in SODIUM CHLORIDE 0.9% IV 95 ML IV CONT (22:20)
[2021-11-17 22:28] VITALS: O2SAT 97
[2021-11-18 08:00] VITALS: O2SAT 96
--- NOTE | 2021-11-18 12:21 | PM.IMPN ---
Progress Note: A&P Assessment and Plan (1) Palliative care by specialist: Code(s): Z51.5 - Encounter for palliative care Status: Acute Assessment and Plan: Meets hospice inpatient criteria due to requiring continuous IV narcotic for control of pain. Pending course over the next 24 hours consider adding adjuvant analgesics therapy and transitioning to oral analgesics. Remainder palliative regimen as prescribed. 11/11: Added PO amoxicillin for culture + strep in urine, fever. D/w spouse and daughter. 11/11: Discussed with patient and spouse and daughter at bedside and they do have a contingency plan (that his did not seem to wish to discuss at this time) if he should stabilize and wean from continuous IV narcotics. Patient wants to go home but and daughter are concerned about his safety there. 11/12: D/c'd morphine and started hydromorphone 0.25mg/hr, 1mg q 2 hr prn 11/12: D/c'd amoxicillin due to inability to swallow med and started IV ceftriaxone 1 gm q 24 hours 11/13: Continue current regimen as he is declining but more comfortable with IV hydromorphone 11/14: Family wishes to plan for discharge 11/16 if circumstances permit 11/15: d/w dtr at bedside care and disposition 11/16: d/w spouse and dtr at bedside plans for possible discharge 11/18 due to caregiver issues and continued need for iv meds 11/17: d/w spouse at bedisde plan for med transition 11/18; discussed humidity and saline nasal spray to help with PND 11/18: d/w dtr at bedside transition to po scheduled hydromorphone and d/c drip, continue prn IV meds for backup, possible discharge 11/19 (2) COPD (chronic obstructive pulmonary disease): Qualifiers: COPD type: COPD with acute exacerbation Qualified Code(s): J44.1 - Chronic obstructive pulmonary disease with (acute) exacerbation Code(s): J44.9 - Chronic obstructive pulmonary disease, unspecified Status: Acute (3) Bladder cancer: Code(s): C67.9 - Malignant neoplasm of bladder, unspecified Status: Acute (4) VTE (venous thromboembolism): Code(s): I82.90 - Acute embolism and thrombosis of unspecified vein Status: Acute (5) Congestive heart failure: Code(s): I50.9 - Heart failure, unspecified Status: Acute (6) Acute kidney injury superimposed on chronic kidney disease: Code(s): N17.9 - Acute kidney failure, unspecified; N18.9 - Chronic kidney disease, unspecified Status: Acute (7) Sepsis: Code(s): A41.9 - Sepsis, unspecified organism Status: Resolved Subjective Date/time seen: 11/18/21 12:21 Interval history: 11/18: Restless only with repositioning. Ate several bites of oatmeal for breakfast. Vences and fecal containment system remain in place. Review of Systems Review of Systems: ROS unobtainable: Yes unobtainable due to medical condition Exam Narrative: Frail elderly mail in nad. no jvd chest coarse bs heart rr extr no edema abd bs hypoactive neuro cn symmetric to visual inspection psych ox1 Objective Data Vital Signs Vital Signs: Vital Signs - 24 hr 11/17/21 13:43 11/17/21 19:58 11/17/21 22:00 Temperature 97 F L 97.4 F L Pulse Rate 107 H 107 H Respiratory Rate 17 18 Blood Pressure 133/75 130/78 Pulse Oximetry 96 100 100 11/17/21 22:28 11/18/21 08:00 Temperature Pulse Rate Respiratory Rate Blood Pressure Pulse Oximetry 97 96 Intake/Output Intake/Output: Intake & Output 11/15/21 11/16/21 11/17/21 11/18/21 23:59 23:59 23:59 23:59 Intake Total 420 248 316.5 60 Output Total 1350 525 500 450 Balance -930 -277 -183.5 -390 Meds/Results Medications: Active Medications Generic Name Dose Route Start Last Admin Trade Name Freq PRN Reason Stop Dose Admin Acetaminophen 650 mg 11/11/21 10:07 11/11/21 10:31 Acetaminophen Elixir 325 Mg/10.15 Ml Udc PO 650 mg Q6H PRN Administration Mild Pain (1-3) or Fever Artificial Tears 1 drop 11/09/21 23:00 03
[2021-11-18] MEDS: HYDROmorphone HCL (*CRX) 4 MG TABLET 8 MG PO ×3 (12:37→23:44)
[2021-11-18 14:00] VITALS: BP 114/81; PULSE 110; RESP 18; TEMP 36.2; O2SAT 95
[2021-11-18] MEDS: ARTIFICIAL TEARS OPHTH SOLN 15 ML BOTTLE 1 DROP EACH EYE ×2 (14:53→23:45)
[2021-11-18 20:00] VITALS: PULSE 110; RESP 18; O2SAT 95
[2021-11-18 22:00] VITALS: BP 123/75; PULSE 86; RESP 18; TEMP 36.6; O2SAT 99
[2021-11-19] MEDS: LORazepam INJ (*CRX) 2 MG/ML VIAL 1 MG IV PUSH (00:45)
[2021-11-19] MEDS: HYDROmorphone HCL (*CRX) 4 MG TABLET 8 MG PO ×2 (06:02→12:36)
[2021-11-19] MEDS: ARTIFICIAL TEARS OPHTH SOLN 15 ML BOTTLE 1 DROP EACH EYE (06:07)
[2021-11-19 08:00] VITALS: O2SAT 99
--- NOTE | 2021-11-19 11:47 | PM.DS ---
DS: Admitting Diagnosis Discharge Date 11/19/2021 Admitting Diagnosis uncontrolled pain and dyspnea due to bladder cancer with metastases DS: Discharge Diagnosis Discharge Diagnosis (1) Palliative care by specialist: Code(s): Z51.5 - Encounter for palliative care Status: Acute Assessment and Plan: Meets hospice inpatient criteria due to requiring continuous IV narcotic for control of pain. Pending course over the next 24 hours consider adding adjuvant analgesics therapy and transitioning to oral analgesics. Remainder palliative regimen as prescribed. 11/11: Added PO amoxicillin for culture + strep in urine, fever. D/w spouse and daughter. 11/11: Discussed with patient and spouse and daughter at bedside and they do have a contingency plan (that his did not seem to wish to discuss at this time) if he should stabilize and wean from continuous IV narcotics. Patient wants to go home but and daughter are concerned about his safety there. 11/12: D/c'd morphine and started hydromorphone 0.25mg/hr, 1mg q 2 hr prn 11/12: D/c'd amoxicillin due to inability to swallow med and started IV ceftriaxone 1 gm q 24 hours 11/13: Continue current regimen as he is declining but more comfortable with IV hydromorphone 11/14: Family wishes to plan for discharge 11/16 if circumstances permit 11/15: d/w dtr at bedside care and disposition 11/16: d/w spouse and dtr at bedside plans for possible discharge 11/18 due to caregiver issues and continued need for iv meds 11/17: d/w spouse at bedisde plan for med transition 11/18; discussed humidity and saline nasal spray to help with PND 11/18: d/w dtr at bedside transition to po scheduled hydromorphone and d/c drip, continue prn IV meds for backup, possible discharge 11/19 11/19: symptoms controlled on oral meds and family and hospice ready for discharge (2) COPD (chronic obstructive pulmonary disease): Qualifiers: COPD type: COPD with acute exacerbation Qualified Code(s): J44.1 - Chronic obstructive pulmonary disease with (acute) exacerbation Code(s): J44.9 - Chronic obstructive pulmonary disease, unspecified Status: Acute (3) Bladder cancer: Code(s): C67.9 - Malignant neoplasm of bladder, unspecified Status: Acute (4) VTE (venous thromboembolism): Code(s): I82.90 - Acute embolism and thrombosis of unspecified vein Status: Acute (5) Congestive heart failure: Code(s): I50.9 - Heart failure, unspecified Status: Acute (6) Acute kidney injury superimposed on chronic kidney disease: Code(s): N17.9 - Acute kidney failure, unspecified; N18.9 - Chronic kidney disease, unspecified Status: Acute (7) Sepsis: Code(s): A41.9 - Sepsis, unspecified organism Status: Resolved DS: Summary Hospital Course Reason for hospitalization: Acute hypoxic respiratory failure Hospital Course: Admitted with uncontrolled pain and dyspnea due to bladder cancer with metastases. Medications were titrated to comfort. Patient improved and was more alert and taking oral nutrition in small amounts. He was treated with 5 additional days of IV antibiotics (ceftriaxone) for presumed UTI. His fever resolved. Family wished to take him home on oral meds. He was transitioned to oral meds the day prior to discharge. Pain remained well controlled. He was discharged home with hospice. Status at Discharge Cognitive/behavioral status at discharge: Confused Functional status at discharge: bed bound Time Spent with Patient Time attestation: Total time spent providing and/or coordinating discharge services: Time spent: Greater than 30 minutes Exam Narrative: Frail elderly mail in nad. no jvd chest coarse bs heart rr extr no edema abd bs hypoactive neuro cn symmetric to visual inspection psych ox1 Discharge Plan Discharge Attending physician on discharge: L[place] Consulting providers: [facility]
--- NOTE | 2021-11-19 12:34 | PC.NURSE ---
[address] Manuel about d/c per [facility]. per family request, rectal tube would like to be kept. Dr. Manuel made aware, provider stated yes, i believe that is what the family wanted when talked to them before. educated on use to rectal tube.
[2021-11-19] MEDS: HEPARIN SODIUM LOCK FLUSH 500 UNITS/5 ML VIAL IV PUSH (13:43)
[2021-11-19 14:00] VITALS: BP 99/63; PULSE 118; RESP 22; TEMP 36.4; O2SAT 97
== END 2021-11-19 14:10 | disposition hospice, inpatient (51) | DRG 951 ==
LOC: ANH3MEDSUR 11-10 11:54 → ANHICU 11-10 12:56
PROVIDERS: Admitting Provider Internal Medicine; PCP Family Medicine; Visit Provider Internal Medicine
DX: Z51.5 Encounter for palliative care (principal); A41.9 Sepsis, unspecified organism; J96.01 Acute respiratory failure with hypoxia; I82.90 Acute embolism and thrombosis of unspecified vein; N17.9 Acute kidney failure, unspecified; J44.1 Chronic obstructive pulmonary disease with (acute) exacerbation; C79.9 Secondary malignant neoplasm of unspecified site; N39.0 Urinary tract infection, site not specified; C67.9 Malignant neoplasm of bladder, unspecified; I50.9 Heart failure, unspecified; N18.9 Chronic kidney disease, unspecified; Z87.891 Personal history of nicotine dependence; Z85.51 Personal history of malignant neoplasm of bladder; Z85.54 Personal history of malignant neoplasm of ureter; Z86.16 Personal history of COVID-19; Z86.711 Personal history of pulmonary embolism; Z66 Do not resuscitate; G89.3 Neoplasm related pain (acute) (chronic); Z82.49 Family history of ischemic heart disease and other diseases of the circulatory system; Z83.6 Family history of other diseases of the respiratory system; Z79.899 Other long term (current) drug therapy
CPT/HCPCS: A9270; J0696; J1170; J1200; J1642; J2060; J2270; J7512